=== PATIENT | male | born 1950 | race Caucasian/White ===

== ENCOUNTER 2022-01-11 09:00 | Outpatient (RCR) | payer MEDICARE, OTHER, SELFPAY | END 2022-01-17 11:19 | disposition home or self-care (01) | PROVIDERS: PCP Physician Assistant Medical; Visit Provider Physician Assistant Surgical | DX: M25.531 Pain in right wrist (principal); Z51.89 Encounter for other specified aftercare | CPT/HCPCS: 97032; 97110 ==

== ENCOUNTER 2022-03-20 14:00 | Outpatient (RCR) | payer MEDICARE, OTHER, SELFPAY ==
--- NOTE | 2022-01-25 17:15 | OT.OPOE ---
OT Outpatient Ortho Eval OT Outpatient Ortho Eval Start: 01/25/22 16:40 Freq: Status: Active Protocol: Document 01/25/22 16:40 LCN (Rec: 01/25/22 17:08 LCN Desktop) E-signed By Marcie Calvert, OTR/L, CLT OT OP Ortho Eval Details Type Type Eval Complexity Low Outpatient History/Precautions Current Condition/Medical Diagnosis Treatment Diagnosis Right wrist pain with OA. Started mid November Date of Onset 01/09/22 Medical Contraindications DM,HTN,Metal Implants, Arthritis Other Contraindications sulpha allergy Medical/Functional History Medical History Reviewed Yes Prior Level of Function/Mobility Migraines. Pernicious anemia. L RTR 6 anchor rep07/25/21. H/o B ankle fusion, cholecystectomy, knee replacement. R CTR 1908's Multple trigger finger releases ( R MF, RF and L MF). Extensor tendon repair in L MF at DIP level. 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 Fitness Limited mobility d/t high orthopedic needs/complexity Ortho Subjective Subjective Subjective Pt has diffuse pain in his R hand/wrist difficulty with dropping items, writing, managing fasteners/food packaging. Can use cane in R hand. Pain Assessment Pain Present Pain Present Pain Reported Location R hand Description Pressure,Sharp,Dull, Achy, Throbbing,With Movement Intensity Moderate Goniometric Comments Goniometric Comments Goniometric Comments Supination and pronation limited at last 25% of arc. WE 25 R (CMC /scap MOD pain) and 30 L. WF 45 R [address] 5 and 15 L. UD 25 R (CMC /scap MILD pain) and 35 L. Pt also with pn in L CMC but milder. Gripping L w CMC /scap MOD pain. Savage pinch and 3 pt pinch is MILD pain. Edema is 23.6 cm in MCP web and 21.8 cm in L side ( hypothenar loss of L observed) Hand Pinch/Wort Extractor Strength Hand Dominance Hand Dominance Right Hand Left Wort Extractor Strength Position 1 (lbs) 45 Lateral Pinch Strength (lbs) 18 Three Point Pinch (lbs) 17 Right Wort Extractor Strength Position 1 (lbs) 12 Lateral Pinch Strength (lbs) 17 Three Point Pinch (lbs) 14 OT Objective Data Sensation Sensation Assessment Summary Comments Has hypothenar mass loss moderate in R and severe in L side. No tingling in R hand. L hand RF/SF numbness intermittent Upper Extremity Special Tests Tenosynovitis Wrist Finklestein Test Positive Left,Positive Right Upper Extremity Special Tests Comments Comments Moderate sx in R Ortiz's and Mild with L. 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 He would benefit from skilled OT to address these areas. Ortho Goals Ortho Goals Goals In 10 weeks, pt will demonstrate:? 1) Decreased pn to <2/10 80% of the time with sustained gripping, carrying groceries, writing and opening food packaging. 2) I HEP for stretching, gradual strengthening and self mgmt strategies. 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 4) ??Pt to be fit with functional bracing (for CMC, wrist) and use adaptive strategies to protect joint integrity to support less pain with ADL. OT Outpatient Treatment Plan Ortho Plan Expected Frequency 1-2x Week Expected Duration 8-10 Weeks through Cert 01/25/22 - 04/26/22 Treatment Plan Evaluation,Edema Control,Joint Mobilization,Manual Therapy, Splinting,Ultrasound, Therapeutic Exercise Certification Certification I Certify That: Therapy Services Provided, Therapy Plan Established, Therapy Plan Reviewed I agree with this treatment plan as medically necessary. MD/PCP signature DATE
== END 2022-12-21 08:12 | disposition home or self-care (01) ==
PROVIDERS: PCP Physician Assistant Medical; Visit Provider Physician Assistant Medical
DX: M25.531 Pain in right wrist (principal); M19.031 Primary osteoarthritis, right wrist; Z51.89 Encounter for other specified aftercare
CPT/HCPCS: 97035; 97140; 97165; L3806

== ENCOUNTER 2022-07-10 17:14 | Outpatient (CLI) | payer MEDICARE, OTHER, SELFPAY ==
[2022-07-10 22:28] LABS: Chloride* 104 mmol/L (96-114); Potassium* 4.4 mmol/L (3.6-5.1); Sodium* 137 mmol/L (135-149)
[2022-07-10 22:31] LABS: Blood Urea Nitrogen* 13 mg/dL (7-30); Carbon Dioxide* 26 mmol/L (20-32); Creatinine* 1.3 mg/dL (0.5-1.5); Estimated Glomerular Filt Rate 59 ml/min
[2022-07-10 22:32] LABS: Calcium* 9.4 mg/dL (8.4-10.6); Glucose* 206 mg/dL (60-115)
== END 2022-07-10 17:15 | disposition home or self-care (01) ==
LOC: LKVREF 17:16
PROVIDERS: PCP Physician Assistant Medical; Visit Provider Physician Assistant Medical
DX: E11.9 Type 2 diabetes mellitus without complications (principal)
CPT/HCPCS: 80048

== ENCOUNTER 2022-08-07 12:10 | Outpatient (CLI) | payer MEDICARE, OTHER, SELFPAY ==
[2022-08-07 22:48] LABS: NT Pro B Type NatriureticPept* 78 pg/mL
[2022-08-07 23:20] LABS: Vitamin B12* 767 pg/mL (243-894)
== END 2022-08-07 12:11 | disposition home or self-care (01) ==
PROVIDERS: PCP Physician Assistant Medical; Visit Provider Physician Assistant Medical
DX: U07.1 COVID-19 (principal); R41.89 Other symptoms and signs involving cognitive functions and awareness; I10 Essential (primary) hypertension; E03.9 Hypothyroidism, unspecified; E78.1 Pure hyperglyceridemia; E53.8 Deficiency of other specified B group vitamins; E11.9 Type 2 diabetes mellitus without complications; I25.10 Atherosclerotic heart disease of native coronary artery without angina pectoris; G47.33 Obstructive sleep apnea (adult) (pediatric); Z99.89 Dependence on other enabling machines and devices
CPT/HCPCS: 82607; 83880; 84443

== ENCOUNTER 2023-01-08 15:15 | Outpatient (CLI) | payer MEDICARE, OTHER, SELFPAY ==
--- NOTE | 2023-01-16 12:02 | ONC.NURNOTE ---
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 Communications Writer willing to give direction for how to order this, once scheduled scenario writer will put patient on the schedule appropriately. Patient was notified of this. In note from PCP it mentions a history of pernicious anemia. Patient notes that he was told this once by a PCP in [place] but had no testing to prove this. He has not been seen by hematology or oncology in his past.
== END 2023-01-08 15:16 | disposition home or self-care (01) ==
PROVIDERS: PCP Physician Assistant Medical; Visit Provider Physician Assistant Medical
DX: R41.89 Other symptoms and signs involving cognitive functions and awareness (principal); R05.9 Cough, unspecified; D64.9 Anemia, unspecified; R35.0 Frequency of micturition; Z12.5 Encounter for screening for malignant neoplasm of prostate
CPT/HCPCS: 82607; 82746; 84153; 84425; 84443; 87086

== ENCOUNTER 2023-01-30 10:25 | Outpatient (CLI) | payer MEDICARE, OTHER, SELFPAY ==
[2023-01-30 12:03] VITALS: BP 130/50; PULSE 56; RESP 20; O2SAT 99; BMI 35.7
[2023-01-30 12:26] LABS: Basophils Percent Auto 9.2 % (0.0-3.0); Eosinophils Percent Auto 1.7 % (0.0-7.0); Hematocrit 41.2 % (37.0-53.0); Hemoglobin* 13.3 gm/dL (13.5-17.5); Immature Granulocytes Pct Auto 10.7 %; Immature Reticulocyte Fraction 24.9 % (2.3-13.4); Lymphocytes Percent Auto 9.8 % (20-44); Mean Corpuscular HGB Conc 32 gm/dL (32-36); Mean Corpuscular Hemoglobin 32 pg (26-34); Mean Corpuscular Volume 100 fL (80-100); Monocytes Percent Auto 4.8 % (0.0-11.0); Neutrophils Percent Auto 63.8 % (42.0-72.0); Platelet Count* 358 K/uL (140-440); RDW Coefficient of Variation % 14.3 % (11.5-15.5); Red Blood Count 4.14 m/uL (4.30-5.90); Reticulocyte Hemoglobin Equivi 33.1 pg (29.0-35.0); Reticulocyte Percent 2.2 % (0.5-2.0); Reticulocytes Absolute 0.09 # (0.03-0.08); White Blood Count* 13.31 K/uL (4.50-11.00)
[2023-01-30 12:36] LABS: Slide Review Reflex Yes
[2023-01-30 12:55] VITALS: BP 124/59; PULSE 57; RESP 16; O2SAT 97
[2023-01-30 13:00] VITALS: BP 119/76; PULSE 60; RESP 16; O2SAT 93
[2023-01-30 13:02] LABS: Slide Review Acceptable Review (Acceptable)
--- NOTE | 2023-01-30 13:06 | W.ANESCHARGE ---
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
[2023-01-30 13:10] VITALS: BP 118/68; PULSE 61; RESP 16; O2SAT 96
[2023-01-30 13:36] VITALS: BP 124/60; PULSE 59; RESP 16; O2SAT 95
== END 2023-01-30 13:38 | disposition home or self-care (01) ==
LOC: OP CLINIC 10:26
PROVIDERS: PCP Physician Assistant Medical; Visit Provider Physician Assistant Medical
DX: C92.10 Chronic myeloid leukemia, BCR/ABL-positive, not having achieved remission (principal)
CPT/HCPCS: 1112; 36415; 38222; 81450; 85025; 85045; 88184; 88185; 88237; 88264; 88305; 88311; 88313; 88342; 88360; 99100; J1644; J2001; J2704

== ENCOUNTER 2023-03-06 08:59 | Outpatient (CLI) | payer MEDICARE, OTHER, SELFPAY ==
--- NOTE | 2023-03-06 09:15 | CRLHL7_ITS ---
For Patients: As a result of the Century Cures Act, medical imaging exams and procedure reports are released immediately into your electronic medical record. You may view this report before your referring provider. If you have questions, please contact your health care provider. CLINICAL HISTORY: CHRONIC MYELOID LEUKEMIA COMPARISON: none TECHNIQUE: Real time arriola scale imaging and color Doppler analysis was performed of the abdomen. FINDINGS: The liver is mildly enlarged measuring 20.7 cm. Coarsened/increased hepatic echotexture noted without intrahepatic mass. The spleen is mildly enlarged and measures 13.8 cm. The pancreas appears normal. The proximal abdominal aorta and IVC appear normal. There is no evidence of ascites. The gallbladder is surgically absent. The common bile duct measures 4 mm in size within the naga hepatis. The kidneys appear symmetric. The right kidney measures 11.3 cm in length and the left kidney measures 12.4 cm. There is no evidence of a renal calculus or hydronephrosis. IMPRESSION: Mild hepatosplenomegaly and diffuse hepatic steatosis. No ascites. Dictated by Sam Crum MD @ 03/06/2023 10:54:25 AM (Electronically Signed)
== END 2023-03-06 09:00 | disposition home or self-care (01) ==
LOC: US 09:01
PROVIDERS: PCP Physician Assistant Medical; Visit Provider Internal Medicine Hematology & Oncology
DX: C92.10 Chronic myeloid leukemia, BCR/ABL-positive, not having achieved remission (principal); K76.0 Fatty (change of) liver, not elsewhere classified; R16.2 Hepatomegaly with splenomegaly, not elsewhere classified
CPT/HCPCS: 76700

== ENCOUNTER 2023-03-15 15:12 | Emergency (ER) | payer MEDICARE, OTHER, SELFPAY ==
[2023-03-15] VITALS (15 sets, daily range): BP systolic 145–185; BP diastolic 71–83; PULSE 74–82; RESP 22; TEMP 36.1; O2SAT 94–98; BMI 35.0
--- NOTE | 2023-03-15 15:30 | ED_ITS ---
HPI - Back Pain/Injury General Time Seen by Provider: 15:30 <Rita Calvert MD - Last Filed: 03/15/23 17:38> Date Seen: 03/15/23 <Rita Calvert MD - Last Filed: 03/15/23 17:38> Chief Complaint: Back Injury/Pain <Rita Calvert MD - Last Filed: 03/15/23 17:38> Stated Complaint: Fell on 03/13 at home-R side-urgent care sent <Rita Calvert MD - Last Filed: 03/15/23 17:38> Time Seen by Provider: 03/15/23 15:30 <Rita Calvert MD - Last Filed: 03/15/23 17:38> Source: patient, RN notes reviewed and old records reviewed <Rita Calvert MD - Last Filed: 03/15/23 17:38> Mode of arrival: ambulatory <Rita Calvert MD - Last Filed: 03/15/23 17:38> Limitations: no limitations <Rita Calvert MD - Last Filed: 03/15/23 17:38> History of Present Illness HPI Narrative: Sam is a very pleasant 72-year-old gentleman with a 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 On SundayMarch 12 patient was walking down his stairs with his cane. His cane slipped forward any ended up falling down 7 stairs and at the bottom of the stairs it turns and thus he was hanging over the railing and hit his right flank/right side on the post. His son had to come and help him up. He notes that he did have neck pain and it is still present although much improved. He does not remember hitting his head and he did not lose consciousness. 2 days ago he developed cold-like symptoms with a cough and shortness of breath. He went to urgent care today and was tested for COVID any does not know the results. Movement increases his pain. He has tried to use Tylenol for discomfort but it did not really help. He has chronic knee pain. He denies back pain in the midline. He has not noticed any fever or chills. <Rita Calvert MD - Last Filed: 03/15/23 17:38> Related Data Home Medications: Home Medications Medication Instructions Recorded Confirmed aspirin 81 mg tablet,delayed mg PO DAILY 01/09/22 03/15/23 release cholecalciferol (vitamin D3) 125 5,000 unit PO DAILY 01/09/22 03/15/23 mcg (5,000 unit) tablet ginkgo biloba 40 mg tablet 40 mg PO QDAY 01/09/22 03/15/23 metformin 500 mg tablet,extended 2,000 mg PO DAILY 01/09/22 03/15/23 release 24 hr lancets (Microlet Lancet) #100 ea 04/07/22 03/15/23 trazodone 50 mg tablet 50 mg PO QPM 03/15/23 03/15/23 Previous Rx's Medication Instructions Recorded fenofibrate 160 mg tablet 160 mg PO DAILY #90 tabs 09/21/22 alprazolam 0.5 mg tablet 0.5 mg PO QDAY PRN panic #5 tabs 10/30/22 pen needle, diabetic 32 gauge x #100 ea 10/30/22 (BD Seema 2nd Gen Pen Needle) levothyroxine 175 mcg tablet 175 mcg PO DAILY #90 tabs 11/08/22 lisinopril 5 mg tablet 5 mg PO DAILY #90 tabs 11/08/22 metoprolol succinate 50 mg 50 mg PO DAILY #90 tabs 11/08/22 tablet,extended release 24 hr omeprazole 20 mg capsule,delayed 40 mg (2 x 20 mg) PO DAILY #180 11/08/22 release caps benzonatate 200 mg capsule 200 mg PO TID PRN cough #30 caps 11/09/22 pantoprazole 40 mg tablet,delayed 40 mg PO DAILY #90 tabs 11/10/22 release blood sugar diagnostic (Contour #100 strips 12/15/22 Next Test Strips) insulin detemir U-100 100 unit/mL 55 - 60 unit (0.55 - 0.6 mL) 01/08/23 (3 mL) subcutaneous pen subcut BID #15 mL albuterol sulfate 90 mcg/actuation 2 puff inhalation Q4-6H PRN 01/11/23 aerosol inhaler shortness of breath or wheezing #8.5 grams fluticasone 500 mcg-salmeterol 50 1 inh inhalation BID #60 ea 01/11/23 mcg/dose blistr powdr for inhalation (Advair Diskus) sitagliptin phosphate 100 mg 100 mg PO DAILY #90 tabs 01/25/23 tablet (Januvia) cyanocobalamin (vitamin B-12) 1,000 mcg IM ONCE #10 mL 02/05/23 1,000 mcg/mL injection solution imatinib 400 mg tablet (Gleevec) 400 mg PO QDAY #30 tabs 03/01/23 pravastatin 20 mg tablet 20 mg PO QDAY #90 tabs 03/09/23 oxybutynin chloride 5 mg 5 mg PO DAILY #90 tabs 03/12/23 tablet,extended release 24 hr tramadol 50 mg tablet 50 mg PO Q8H PRN pain #14 tabs 03/15/23 <Rita Calvert MD - Last Filed: 03/15/23 17:38> Allergies/Adverse Reactions: Allergies Allergy/AdvReac Type Severity Reaction Status Date / Time oxycodone Allergy Severe Hallucinations Verified 03/15/23 12:03 and agitation, became violent Penicillins Allergy Severe Rash with Verified 03/15/23 12:03 blisters and welts adhesive tape Allergy Mild Rash Verified 03/15/23 12:03 Sulfa (Sulfonamide Allergy hives and Verified 03/15/23 12:03 Antibiotics) blisters <Rita Calvert MD - Last Filed: 03/15/23 17:38> Review of Systems Status of ROS: Reports: 10 or more systems reviewed and unremarkable except as noted in History and below <Rita Calvert MD - Last Filed: 03/15/23 17:38> Const: Reports: fatigue; Denies: fever or chills <Rita Calvert MD - Last Filed: 03/15/23 17:38> Eyes: Denies: change in vision <Rita Calvert MD - Last Filed: 03/15/23 17:38> ENMT: Reports: neck pain; Denies: throat pain, throat swelling, difficulty swallowing or hoarseness <Rita Calvert MD - Last Filed: 03/15/23 17:38> Cardio: Reports: lightheadedness and shortness of breath with exertion; Denies: chest pain or swelling of feet/ankles <Rita Calvert MD - Last Filed: 03/15/23 17:38> Resp: Reports: shortness of breath, cough, pain on inspiration and chest congestion; Denies: wheezing or coughing up blood <Rita Calvert MD - Last Filed: 03/15/23 17:38> GI: Reports: abdominal pain and nausea; Denies: vomiting, diarrhea or difficulty swallowing <Rita Calvert MD - Last Filed: 03/15/23 17:38> : Denies: painful urination, urinary frequency or blood in urine <Rita Calvert MD - Last Filed: 03/15/23 17:38> Musculo: Reports: back pain and neck pain; Denies: extremity pain <Rita Calvert MD - Last Filed: 03/15/23 17:38> Neuro: Denies: headache <Rita Calvert MD - Last Filed: 03/15/23 17:38> Endo: Reports: fatigue <Rita Calvert MD - Last Filed: 03/15/23 17:38> Allergy/Immuno: Denies: throat swelling or wheezing <Rita Calvert MD - Last Filed: 03/15/23 17:38> [facility] Medical History: Medical History COVID-19 ?U07.1 - COVID-19 (ICD-10) B12 deficiency ?E53.8 - Deficiency of other specified B group vitamins (ICD-10) Urge incontinence of urine ?N39.41 - Urge incontinence (ICD-10) Type 2 diabetes mellitus ?E11.9 - Type 2 diabetes mellitus without complications (ICD-10) Tubular adenoma of colon (07/2018) ?D12.6 - Benign neoplasm of colon, unspecified (ICD-10) Thyroid nodule ?E04.1 - Nontoxic single thyroid nodule (ICD-10) Seasonal allergic rhinitis ?J30.2 - Other seasonal allergic rhinitis (ICD-10) Obstructive sleep apnea treated with continuous positive airway pressure (CPAP) ?G47.33 - Obstructive sleep apnea (adult) (pediatric) (ICD-10) ?Z99.89 - Dependence on other enabling machines and devices (ICD-10) Hypothyroidism ?E03.9 - Hypothyroidism, unspecified (ICD-10) Hypertriglyceridemia ?E78.1 - Pure hyperglyceridemia (ICD-10) Hypertension ?I10 - Essential (primary) hypertension (ICD-10) History of pernicious anemia ?Z86.2 - Personal history of diseases of the blood and blood-forming organs and certain disorders involving the immune mechanism (ICD-10) History of migraine ?Z86.69 - Personal history of other diseases of the nervous system and sense organs (ICD-10) Gastroesophageal reflux disease ?K21.9 - Gastro-esophageal reflux disease without esophagitis (ICD-10) Chronic, continuous use of opioids ?F11.90 - Opioid use, unspecified, uncomplicated (ICD-10) Chronic knee pain ?M25.569 - Pain in unspecified knee (ICD-10) ?G89.29 - Other chronic pain (ICD-10) Asthma ?J45.909 - Unspecified asthma, uncomplicated (ICD-10) Anxiety ?F41.9 - Anxiety disorder, unspecified (ICD-10) Abdominal aortic aneurysm (AAA) ?I71.4 - Abdominal aortic aneurysm, without rupture (ICD-10) <Rita Calvert MD - Last Filed: 03/15/23 17:38> Surgical History: Surgical History History of excision of pilonidal cyst ?Z98.890 - Other specified postprocedural states (ICD-10) History of carpal tunnel surgery of left wrist ?Z98.890 - Other specified postprocedural states (ICD-10) S/P trigger finger release (05/10/20) ?Z98.890 - Other specified postprocedural states (ICD-10) Hx of repair of left rotator cuff (07/25/21) ?Z98.890 - Other specified postprocedural states (ICD-10) History of tonsillectomy ?Z90.89 - Acquired absence of other organs (ICD-10) History of knee surgery ?Z98.890 - Other specified postprocedural states (ICD-10) History of cholecystectomy ?Z90.49 - Acquired absence of other specified parts of digestive tract (ICD- 10) History of carpal tunnel surgery of right wrist ?Z98.890 - Other specified postprocedural states (ICD-10) History of ankle fusion ?Z98.1 - Arthrodesis status (ICD-10) <Rita Calvert MD - Last Filed: 03/15/23 17:38> Social History: Social History Narrative: Former smoker , 2 kids, retired, nonsmoker, no alcohol Resides in [place]- Multi generational home with his elderly mother, his , his daughter and family Smoking Status: Never smoker Do you use any of these nicotine containing products: None Second hand tobacco smoke exposure: No Non-prescribed substance use: denies use Little interest or pleasure in doing things: not at all Feeling down, depressed, or hopeless: several days <Rita Calvert MD - Last Filed: 03/15/23 17:38> Exam Narrative: Exam Narrative: Patient is alert and oriented. He is somewhat tachypneic and wearing a mask at this time. I do not hear any audible wheezing. His eyes are clear. His head is atraumatic normocephalic. He really has no midline cervical tenderness but he does have discomfort with rotation of the neck. Upper extremity strength is intact. GCS of 15 Heart with regular rate and rhythm and lungs are with decreased breath sounds in the lung bases right greater than left. I do not auscultate any crackles. Abdomen is noted to have right upper quadrant tenderness with palpation. He has a long strip of erythema/superficial abrasion on his right lateral torso from the bottom of the rib cage extending onto his right flank. This is measuring approximately 12 cm x 3 cm across. There is no surrounding edema or erythema or ecchymosis. Palpation down the thoracic and lumbar spine is without discomfort. Hips appear to be without discomfort. He is moving all extremities. <Rita Calvert MD - Last Filed: 03/15/23 17:38> Const: Vital Signs, click to edit/add: Vital Signs - 24 hr 03/15/23 15:17 03/15/23 16:07 03/15/23 16:15 Temperature 96.9 F L Pulse Rate 82 82 Pulse Rate [Pulse Oximeter] 79 Respiratory Rate 22 Blood Pressure Blood Pressure [Ri ght Upper Arm] 145/77 H Pulse Oximetry 98 96 94 Oxygen Delivery Me thod Room Air 03/15/23 16:54 03/15/23 16:55 Temperature Pulse Rate 79 Pulse Rate [Pulse Oximeter] Respiratory Rate Blood Pressure 158/83 H Blood Pressure [Ri ght Upper Arm] Pulse Oximetry 97 Oxygen Delivery Me thod <Rita Calvert MD - Last Filed: 03/15/23 17:38> Vital Signs, click to edit/add: Vital Signs - 24 hr 03/15/23 15:17 03/15/23 16:07 03/15/23 16:15 Temperature 96.9 F L Pulse Rate 82 82 Pulse Rate [Pulse Oximeter] 79 Respiratory Rate 22 Blood Pressure Blood Pressure [Ri ght Upper Arm] 145/77 H Pulse Oximetry 98 96 94 Oxygen Delivery Me thod Room Air 03/15/23 16:54 03/15/23 16:55 Temperature Pulse Rate 79 Pulse Rate [Pulse Oximeter] Respiratory Rate Blood Pressure 158/83 H Blood Pressure [Ri ght Upper Arm] Pulse Oximetry 97 Oxygen Delivery Me thod <Manohar Salter DO - Last Filed: 03/15/23 18:21> Documenting provider has reviewed patient's vital signs: yes <Rita Calvert MD - Last Filed: 03/15/23 17:38> Course Course ED Course: Patient presents 4 days post high mechanism of injury after fall downstairs. He is having difficulty breathing but also has symptoms of a respiratory infection. COVID was negative from the clinic but we will repeat a swab him here using the triple swab. Would also do CTs of the neck chest abdomen and pelvis as well as CBC, comprehensive, CRP. Patient has had a dysphoric reaction to oxycodone in the past. However he is in significant discomfort and I am suggesting that we do a small dose of morphine 2 mg along with Zofran 4 mg for pain control. Is he and his are in agreement with this plan. <Rita Calvert MD - Last Filed: 03/15/23 17:38> Vital Signs Vital signs: Initial Vital Signs Temperature 96.9 F L 03/15/23 15:17 Temperature Source Temporal Artery Scan 03/15/23 15:17 Pulse Rate 79 03/15/23 15:17 Pulse Rhythm Regular 03/15/23 15:17 Respiratory Rate 22 03/15/23 15:17 Blood Pressure 145/77 H 03/15/23 15:17 Blood Pressure Mean 99 03/15/23 15:17 Blood Pressure Position Sitting 03/15/23 15:17 Pulse Oximetry 98 03/15/23 15:17 Oxygen Delivery Method Room Air 03/15/23 15:17 Vital Signs Temperature 96.9 F L 03/15/23 15:17 Pulse Rate 79 03/15/23 15:17 Respiratory Rate 22 03/15/23 15:17 Blood Pressure 145/77 H 03/15/23 15:17 Pulse Oximetry 98 03/15/23 15:17 Oxygen Delivery Method Room Air 03/15/23 15:17 Temperature 96.9 F L 03/15/23 15:17 Pulse Rate 79 03/15/23 16:54 Respiratory Rate 22 03/15/23 15:17 Blood Pressure 158/83 H 03/15/23 16:55 Pulse Oximetry 97 03/15/23 16:54 Oxygen Delivery Method Room Air 03/15/23 15:17 <Rita Calvert MD - Last Filed: 03/15/23 17:38> Initial Vital Signs Temperature 96.9 F L 03/15/23 15:17 Temperature Source Temporal Artery Scan 03/15/23 15:17 Pulse Rate 79 03/15/23 15:17 Pulse Rhythm Regular 03/15/23 15:17 Respiratory Rate 03/15/23 15:17 Blood Pressure 145/77 H 03/15/23 15:17 Blood Pressure Mean 99 03/15/23 15:17 Blood Pressure Position Sitting 03/15/23 15:17 Pulse Oximetry 98 03/15/23 15:17 Oxygen Delivery Method Room Air 03/15/23 15:17 Vital Signs Temperature 96.9 F L 03/15/23 15:17 Pulse Rate 79 03/15/23 15:17 Respiratory Rate 22 03/15/23 15:17 Blood Pressure 145/77 H 03/15/23 15:17 Pulse Oximetry 98 03/15/23 15:17 Oxygen Delivery Method Room Air 03/15/23 15:17 Temperature 96.9 F L 03/15/23 15:17 Pulse Rate 79 03/15/23 16:54 Respiratory Rate 22 03/15/23 15:17 Blood Pressure 158/83 H 03/15/23 16:55 Pulse Oximetry 97 03/15/23 16:54 Oxygen Delivery Method Room Air 03/15/23 15:17 <Manohar Salter DO - Last Filed: 03/15/23 18:21> MDM - Back Pain/Injury MDM Narrative Medical decision making narrative: At this time I will sign this patient out to my partner Dr. Salter for review of CTs of the chest abdomen pelvis and cervical spine and final disposition. <Rita Calvert MD - Last Filed: 03/15/23 17:38> At this time I will sign this patient out to my partner Dr. Salter for review of CTs of the chest abdomen pelvis and cervical spine and final disposition. Patient was signed out to me pending results of the CT of the chest abdomen and pelvis. Cervical spine CT is done and shows no concerning abnormalities. CT of the chest abdomen pelvis also shows no acute abnormalities. Patient is doing well and pain has improved with the morphine given. He is asking for pain medicine to go home with his Tylenol ibuprofen not been helping. He cannot take oxycodone as it causes hallucinations with morphine was not causing issues will try tramadol. Patient is otherwise doing well and can be safely discharged home. Patient and his agree with this plan. <Manohar Salter DO - Last Filed: 03/15/23 18:21> Medical Records Attestation: I reviewed the patient's medical records. <Rita Calvert MD - Last Filed: 03/15/23 17:38> Lab Data Attestation: I reviewed the patient's lab results. <Rita Calvert MD - Last Filed: 03/15/23 17:38> Labs: Lab Results 03/15/23 Range/Units 15:55 WBC 15.40 H (4.50-11.00) K/uL RBC 4.15 L (4.30-5.90) m/uL Hgb 13.4 L (13.5-17.5) gm/dL Hct 41.4 (37.0-53.0) % MCV 100 (80-100) fL MCH 32 (26-34) pg MCHC 32 (32-36) gm/dL RDW Coeff of Mirella 13.5 (11.5-15.5) % Plt Count 427 (140-440) K/uL Neut % (Auto) 75.5 H (42.0-72.0) % Lymph % (Auto) 6.2 L (20-44) % [place] % (Auto) 4.2 (0.0-11.0) % Eos % (Auto) 1.2 (0.0-7.0) % Baso % (Auto) 6.8 H (0.0-3.0) % Neut # (Auto) 11.60 H (1.7-7.0) K/uL Lymph # (Auto) 1.00 (0.90-2.90) K/uL [place] # (Auto) 0.60 (0.00-0.90) K/UL Eos # (Auto) 0.20 (0.00-0.50) K/uL Baso # (Auto) 1.00 H (0.00-0.30) K/uL Abs Immat Gran (auto) 0.90 H (0.00-0.30) K/uL Imm/Tot Granulo (auto) 6.1 % Diff Slide Review Acceptable Review (Acceptable) Sodium 138 (135-149) mmol/L Potassium 3.6 (3.6-5.1) mmol/L Chloride 99 (96-114) mmol/L Carbon Dioxide 25 (20-32) mmol/L Anion Gap 14 (7-15) mEq/L BUN 20 (7-30) mg/dL Creatinine 1.7 H (0.5-1.5) mg/dL Estimated Creat Clear 41.75 Estimated GFR 43 ml/min Glucose 141 H (60-115) mg/dL Lactate 1.9 (0.5-1.9) mmol/L Calcium 10.1 (8.4-10.6) mg/dL Total Bilirubin 0.7 (0.1-1.5) mg/dL AST 36 H (12-35) U/L ALT 29 (4-50) U/L Alkaline Phosphatase 58 (40-150) U/L C-Reactive Protein 4.2 H (0.5-1.0) mg/dL Total Protein 8.7 H (6.0-8.3) g/dL Albumin 4.6 (3.3-5.0) g/dL <Rita Calvert MD - Last Filed: 03/15/23 17:38> Lab Results 03/15/23 Range/Units 15:55 WBC 15.40 H (4.50-11.00) K/uL RBC 4.15 L (4.30-5.90) m/uL Hgb 13.4 L (13.5-17.5) gm/dL Hct 41.4 (37.0-53.0) % MCV 100 (80-100) fL MCH 32 (26-34) pg MCHC 32 (32-36) gm/dL RDW Coeff of Mirella 13.5 (11.5-15.5) % Plt Count 427 (140-440) K/uL Neut % (Auto) 75.5 H (42.0-72.0) % Lymph % (Auto) 6.2 L (20-44) % [place] % (Auto) 4.2 (0.0-11.0) % Eos % (Auto) 1.2 (0.0-7.0) % Baso % (Auto) 6.8 H (0.0-3.0) % Neut # (Auto) 11.60 H (1.7-7.0) K/uL Lymph # (Auto) 1.00 (0.90-2.90) K/uL [place] # (Auto) 0.60 (0.00-0.90) K/UL Eos # (Auto) 0.20 (0.00-0.50) K/uL Baso # (Auto) 1.00 H (0.00-0.30) K/uL Abs Immat Gran (auto) 0.90 H (0.00-0.30) K/uL Imm/Tot Granulo (auto) 6.1 % Diff Slide Review Acceptable Review (Acceptable) Sodium 138 (135-149) mmol/L Potassium 3.6 (3.6-5.1) mmol/L Chloride 99 (96-114) mmol/L Carbon Dioxide 25 (20-32) mmol/L Anion Gap 14 (7-15) mEq/L BUN 20 (7-30) mg/dL Creatinine 1.7 H (0.5-1.5) mg/dL Estimated Creat Clear 41.75 Estimated GFR 43 ml/min Glucose 141 H (60-115) mg/dL Lactate 1.9 (0.5-1.9) mmol/L Calcium 10.1 (8.4-10.6) mg/dL Total Bilirubin 0.7 (0.1-1.5) mg/dL AST 36 H (12-35) U/L ALT 29 (4-50) U/L Alkaline Phosphatase 58 (40-150) U/L C-Reactive Protein 4.2 H (0.5-1.0) mg/dL Total Protein 8.7 H (6.0-8.3) g/dL Albumin 4.6 (3.3-5.0) g/dL <Manohar Salter DO - Last Filed: 03/15/23 18:21> Imaging Data CT Chest/Ab/Pelvis: Attestation: I have reviewed the pertinent imaging results. <Rita Calvert MD - Last Filed: 03/15/23 17:38> Radiologist's impression: INDICATION: FALL, NECK PAIN, TRAUMA TO RIGHT RIB CAGE, RIGHT FLANK PAIN TECHNIQUE: CT chest, abdomen and pelvis acquired 120 milliliters of Isovue 370 IV contrast. COMPARISON: None. FINDINGS: CHEST: Cardiovascular structures: Heart size is normal. Thoracic aorta and main pulmonary artery are normal in caliber. Calcific atherosclerosis of the coronary arteries. Mediastinum and selwyn: No mass or adenopathy. Lungs and pleura: Mild bibasilar atelectasis. No pleural effusions or pneumothorax identified. Chest wall and axilla: No mass or adenopathy. Bones: No suspicious bone lesions. Unremarkable for age. ABDOMEN AND PELVIS: Liver: Unremarkable. Gallbladder and bile ducts: The gallbladder is absent. No intra or extrahepatic biliary ductal dilatation. Pancreas: Unremarkable. Spleen: Unremarkable. Adrenal glands: Unremarkable. Kidneys: Unremarkable. GI tract: Unremarkable. Vascular structures: Unremarkable. Lymph nodes: Unremarkable. Miscellaneous: Left fat containing inguinal hernia. No free air or significant free fluid. Subcutaneous stranding of the right lateral abdominal wall (). Pelvic Organs: Unremarkable. Bones: No suspicious bone lesions. Unremarkable for age. IMPRESSION: No intrathoracic or intra-abdominal traumatic injury identified. Please note that all CT scans at this facility use dose modulation, iterative reconstruction, and/or weight-based dosing when appropriate to reduce radiation dose to as low as reasonably achievable. Dictated by Cesario Car MD @ 03/15/2023 5:58:44 PM <Manohar Salter DO - Last Filed: 03/15/23 18:21> Cervical spine CT: Attestation: I have reviewed the pertinent imaging results. <Rita Calvert MD - Last Filed: 03/15/23 17:38> Radiologist's impression: Indication: Fall, neck pain Technique: Noncontrast axial CT of the cervical spine with coronal and sagittal reformats. Comparison: Same day CT head Findings: Straightening of the cervical lordosis. No significant spondylolisthesis. Craniocervical articulation appears within normal limits. Vertebral body heights are grossly maintained. No evidence of acute fracture. No suspicious high density material within the central spinal canal. Scattered spondylosis, with degenerative disc-osteophyte complexes, uncovertebral and facet arthropathy. Suspect mild spinal canal narrowing at C6-7, with multilevel neural foraminal stenosis. No suspicious findings identified in the paraspinal soft tissues. Hypodense right thyroid nodule measuring approximately 2.5 cm. Included lung apices are clear. Impression: 1. No CT evidence of acute fracture or traumatic malalignment in the cervical spine. 2. Cervical spondylosis, with mild spinal canal narrowing and multilevel neural foraminal stenosis. 3. Incidental hypodense 2.5 cm right thyroid nodule. Please note that all CT scans at this facility use dose modulation, iterative reconstruction, and/or weight-based dosing when appropriate to reduce radiation dose to as low as reasonably achievable. Dictated by Ksenia Chong MD @ 03/15/2023 5:31:33 PM <Manohar Salter DO - Last Filed: 03/15/23 18:21> CT scan - head: Attestation: I have reviewed the pertinent imaging results. <Rita Calvert MD - Last Filed: 03/15/23 17:38> Radiologist's impression: Bony calvarium appears grossly intact. No acute intracranial hemorrhage or abnormal extra-axial fluid collection. No midline shift, hydrocephalus, or herniation. Preserved arriola-white matter differentiation. Scattered supratentorial white matter hypoattenuation. Midline structures are unremarkable. Scattered intracranial atherosclerotic plaquing. Diffuse paranasal sinus mucosal thickening with bilateral maxillary sinus air-fluid levels. Presumed cerumen bilateral external auditory canals. Unremarkable orbits. IMPRESSION: 1. No evidence of skull fracture or acute intracranial hemorrhage. 2. Pansinus mucosal thickening with bilateral maxillary sinus air-fluid levels. Advise clinical correlation for acute sinusitis. <Rita Calvert MD - Last Filed: 03/15/23 17:38> Discharge Plan Discharge Clinical Impression: Contusion Qualifiers: Encounter type: initial encounter Contusion area: abdominal wall Qualified Code(s): S30.1XXA - Contusion of abdominal wall, initial encounter <Rita Calvert MD - Last Filed: 03/15/23 17:38> Patient Disposition: Home, Self-Care <Rita Calvert MD - Last Filed: 03/15/23 17:38> Condition: Stable <Rita Calvert MD - Last Filed: 03/15/23 17:38> Instructions: Contusion in Adults (ED) <Rita Calvert MD - Last Filed: 03/15/23 17:38> Additional Instructions: He can take Tylenol and ibuprofen for pain. If that is not helping use tramadol. Return for new or worsening symptoms. Follow-up with primary care provider if pain is not under control <Rita Calvert MD - Last Filed: 03/15/23 17:38> Prescriptions: New tramadol 50 mg tablet 50 mg PO Q8H PRN (Reason: pain) Qty: 14 0RF No Action (DME) lancets [Microlet Lancet] Misc See Rx Instructions .ROUTE .MEDSUPPLY Qty: 100 Patient Comments: USE UP TO 4X DAILY FOR BLOOD SUGAR CHECKS Rx Instructions: As directed fenofibrate 160 mg tablet 160 mg PO DAILY Qty: 90 2RF Rx Instructions: for triglycerides alprazolam 0.5 mg tablet 0.5 mg PO QDAY PRN (Reason: panic ) Qty: 5 0RF Rx Instructions: once daily for severe anxiety/panic (DME) pen needle, diabetic [BD Seema 2nd Gen Pen Needle] 32 gauge x 5/32 needle See Rx Instructions .Route Qty: 100 3RF Rx Instructions: twice daily for in[place], diabetes benzonatate 200 mg capsule 200 mg PO TID PRN (Reason: cough) Qty: 30 1RF imatinib [Gleevec] 400 mg tablet 400 mg PO QDAY Qty: 30 1RF cholecalciferol (vitamin D3) 125 mcg (5,000 unit) tablet 5,000 unit PO DAILY aspirin 81 mg tablet,delayed release (DR/EC) PO DAILY ginkgo biloba 40 mg tablet 40 mg PO QDAY Rx Instructions: give with meal/snack metformin 500 mg tablet extended release 24 hr 2,000 mg PO DAILY Rx Instructions: for diabetes insulin detemir U-100 100 unit/mL (3 mL) insulin pen 55 - 60 unit subcut BID Qty: 15 3RF Rx Instructions: 60 units in the AM, 55 units in the evening trazodone 50 mg tablet 50 mg PO QPM lisinopril 5 mg tablet 5 mg PO DAILY Qty: 90 2RF Rx Instructions: for blood pressure levothyroxine 175 mcg tablet 175 mcg PO DAILY Qty: 90 2RF Rx Instructions: for thyroid metoprolol succinate 50 mg tablet extended release 24 hr 50 mg PO DAILY Qty: 90 3RF Rx Instructions: for blood pressure omeprazole 20 mg capsule,delayed release(DR/EC) 40 mg PO DAILY Qty: 180 3RF Rx Instructions: for gerd pantoprazole 40 mg tablet,delayed release (DR/EC) 40 mg PO DAILY Qty: 90 3RF Rx Instructions: for gerd (DME) Contour Next Test Strips Strip See Rx Instructions .ROUTE .COMPLEX Qty: 100 3RF Dose Instruction: USE TO TEST BLOOD SUGAR TWICE DAILY DUE FOR APPT Rx Instructions: USE TO TEST BLOOD SUGAR TWICE DAILY DUE FOR APPT albuterol sulfate 90 mcg/actuation HFA aerosol inhaler 2 puff inhalation Q4-6H PRN (Reason: shortness of breath or wheezing) Qty: 8. 5 3RF fluticasone propion-salmeterol [Advair Diskus] 500-50 mcg/dose blister with device 1 inh inhalation BID Qty: 60 3RF Januvia 100 mg tablet 100 mg PO DAILY Qty: 90 1RF Rx Instructions: once daily for diabetes cyanocobalamin (vitamin B-12) 1,000 mcg/mL solution 1,000 mcg IM ONCE Qty: 10 3RF Rx Instructions: 1,000mcg once monthly pravastatin 20 mg tablet 20 mg PO QDAY Qty: 90 0RF Rx Instructions: stop atorvastatin Start once daily for cholesterol oxybutynin chloride 5 mg tablet extended release 24hr 5 mg PO DAILY Qty: 90 0RF Rx Instructions: Take 1 tablet daily <Rita Calvert MD - Last Filed: 03/15/23 17:38> Follow Up/Referrals: Jessie England PA-C [Primary Care Provider] - <Rita Calvert MD - Last Filed: 03/15/23 17:38> Stand Alone Forms: MyHealth Info Instructions <Rita Calvert MD - Last Filed: 03/15/23 17:38>
--- NOTE | 2023-03-15 15:41 | CRLHL7_ITS ---
For Patients: As a result of the Century Cures Act, medical imaging exams and procedure reports are released immediately into your electronic medical record. You may view this report before your referring provider. If you have questions, please contact your health care provider. INDICATION: Fall, neck pain TECHNIQUE: Noncontrast axial CT of the head. Coronal and sagittal reformats. Bone and soft tissue algorithms. COMPARISON: No relevant comparison studies available at this institution. FINDINGS: Bony calvarium appears grossly intact. No acute intracranial hemorrhage or abnormal extra-axial fluid collection. No midline shift, hydrocephalus, or herniation. Preserved arriola-white matter differentiation. Scattered supratentorial white matter hypoattenuation. Midline structures are unremarkable. Scattered intracranial atherosclerotic plaquing. Diffuse paranasal sinus mucosal thickening with bilateral maxillary sinus air-fluid levels. Presumed cerumen bilateral external auditory canals. Unremarkable orbits. IMPRESSION: 1. No evidence of skull fracture or acute intracranial hemorrhage. 2. Pansinus mucosal thickening with bilateral maxillary sinus air-fluid levels. Advise clinical correlation for acute sinusitis. Please note that all CT scans at this facility use dose modulation, iterative reconstruction, and/or weight-based dosing when appropriate to reduce radiation dose to as low as reasonably achievable. Dictated by Ksenia Chong MD @ 03/15/2023 5:26:43 PM (Electronically Signed)
--- NOTE | 2023-03-15 15:41 | CRLHL7_ITS ---
For Patients: As a result of the Century Cures Act, medical imaging exams and procedure reports are released immediately into your electronic medical record. You may view this report before your referring provider. If you have questions, please contact your health care provider. Indication: Fall, neck pain Technique: Noncontrast axial CT of the cervical spine with coronal and sagittal reformats. Comparison: Same day CT head Findings: Straightening of the cervical lordosis. No significant spondylolisthesis. Craniocervical articulation appears within normal limits. Vertebral body heights are grossly maintained. No evidence of acute fracture. No suspicious high density material within the central spinal canal. Scattered spondylosis, with degenerative disc-osteophyte complexes, uncovertebral and facet arthropathy. Suspect mild spinal canal narrowing at C6-7, with multilevel neural foraminal stenosis. No suspicious findings identified in the paraspinal soft tissues. Hypodense right thyroid nodule measuring approximately 2.5 cm. Included lung apices are clear. Impression: 1. No CT evidence of acute fracture or traumatic malalignment in the cervical spine. 2. Cervical spondylosis, with mild spinal canal narrowing and multilevel neural foraminal stenosis. 3. Incidental hypodense 2.5 cm right thyroid nodule. Please note that all CT scans at this facility use dose modulation, iterative reconstruction, and/or weight-based dosing when appropriate to reduce radiation dose to as low as reasonably achievable. Dictated by Ksenia Chong MD @ 03/15/2023 5:31:33 PM (Electronically Signed)
--- NOTE | 2023-03-15 15:43 | CRLHL7_ITS ---
For Patients: As a result of the Century Cures Act, medical imaging exams and procedure reports are released immediately into your electronic medical record. You may view this report before your referring provider. If you have questions, please contact your health care provider. INDICATION: FALL, NECK PAIN, TRAUMA TO RIGHT RIB CAGE, RIGHT FLANK PAIN TECHNIQUE: CT chest, abdomen and pelvis acquired 120 milliliters of Isovue 370 IV contrast. COMPARISON: None. FINDINGS: CHEST: Cardiovascular structures: Heart size is normal. Thoracic aorta and main pulmonary artery are normal in caliber. Calcific atherosclerosis of the coronary arteries. Mediastinum and selwyn: No mass or adenopathy. Lungs and pleura: Mild bibasilar atelectasis. No pleural effusions or pneumothorax identified. Chest wall and axilla: No mass or adenopathy. Bones: No suspicious bone lesions. Unremarkable for age. ABDOMEN AND PELVIS: Liver: Unremarkable. Gallbladder and bile ducts: The gallbladder is absent. No intra or extrahepatic biliary ductal dilatation. Pancreas: Unremarkable. Spleen: Unremarkable. Adrenal glands: Unremarkable. Kidneys: Unremarkable. GI tract: Unremarkable. Vascular structures: Unremarkable. Lymph nodes: Unremarkable. Miscellaneous: Left fat containing inguinal hernia. No free air or significant free fluid. Subcutaneous stranding of the right lateral abdominal wall (). Pelvic Organs: Unremarkable. Bones: No suspicious bone lesions. Unremarkable for age. IMPRESSION: No intrathoracic or intra-abdominal traumatic injury identified. Please note that all CT scans at this facility use dose modulation, iterative reconstruction, and/or weight-based dosing when appropriate to reduce radiation dose to as low as reasonably achievable. Dictated by Cesario Car MD @ 03/15/2023 5:58:44 PM (Electronically Signed)
[2023-03-15 16:04] LABS: Lactate* 1.9 mmol/L (0.5-1.9)
[2023-03-15] MEDS: MORPHINE 2 MG/ML inj IVP (16:04)
[2023-03-15 16:06] LABS: Basophils Percent Auto 6.8 % (0.0-3.0); Eosinophils Percent Auto 1.2 % (0.0-7.0); Hematocrit 41.4 % (37.0-53.0); Hemoglobin* 13.4 gm/dL (13.5-17.5); Immature Granulocytes Pct Auto 6.1 %; Lymphocytes Percent Auto 6.2 % (20-44); Mean Corpuscular HGB Conc 32 gm/dL (32-36); Mean Corpuscular Hemoglobin 32 pg (26-34); Mean Corpuscular Volume 100 fL (80-100); Monocytes Percent Auto 4.2 % (0.0-11.0); Neutrophils Percent Auto 75.5 % (42.0-72.0); Platelet Count* 427 K/uL (140-440); RDW Coefficient of Variation % 13.5 % (11.5-15.5); Red Blood Count 4.15 m/uL (4.30-5.90)
[2023-03-15 16:12] LABS: Slide Review Reflex Yes
[2023-03-15 16:19] LABS: Albumin* 4.6 g/dL (3.3-5.0); Chloride* 99 mmol/L (96-114); Potassium* 3.6 mmol/L (3.6-5.1); Sodium* 138 mmol/L (135-149)
[2023-03-15 16:21] LABS: Bilirubin Total* 0.7 mg/dL (0.1-1.5); Creatinine* 1.7 mg/dL (0.5-1.5); Est. Creatinine Clearance* 41.75; Estimated Glomerular Filt Rate 43 ml/min
[2023-03-15 16:22] LABS: Alanine Aminotransferase* 29 U/L (4-50); Alkaline Phosphatase* 58 U/L (40-150); Anion Gap 14 mEq/L (7-15); Aspartate Amino Transferase* 36 U/L (12-35); Blood Urea Nitrogen* 20 mg/dL (7-30); Carbon Dioxide* 25 mmol/L (20-32); Total Protein* 8.7 g/dL (6.0-8.3)
[2023-03-15 16:23] LABS: Calcium* 10.1 mg/dL (8.4-10.6); Glucose* 141 mg/dL (60-115)
[2023-03-15 16:25] LABS: C Reactive Protein* 4.2 mg/dL (0.5-1.0)
[2023-03-15 16:43] LABS: Slide Review Acceptable Review (Acceptable)
[2023-03-15] MEDS: 0.9 % SODIUM CHLORIDE 500 ML 500 ML IV ×2 (16:57→17:58)
== END 2023-03-15 18:55 | disposition home or self-care (01) ==
PROVIDERS: Family Medicine; Emergency Provider Student in an Organized Health Care Education/Training Program; PCP Physician Assistant Medical
DX: S30.1XXA Contusion of abdominal wall, initial encounter (principal); W10.9XXA Fall (on) (from) unspecified stairs and steps, initial encounter
CPT/HCPCS: 36415; 70450; 71260; 72125; 74177; 80053; 83605; 85025; 86140; 87086; 99284; 99285; J2270; J7120; Q9967

== ENCOUNTER 2023-05-15 06:48 | Outpatient (CLI) | payer MEDICARE, OTHER, SELFPAY ==
[2023-05-15] MEDS: SODIUM CHLORIDE 0.9 % (FLUSH) 10 ML SYRINGE IVF (09:10)
[2023-05-15] MEDS: REGADENOSON 0.4 MG/5 ML SYRINGE IVP (09:10)
[2023-05-15 09:25] VITALS: BP 116/68; PULSE 79; RESP 16
--- NOTE | 2023-05-15 10:07 | W.PM.STED ---
Stress Test Note Date Date of test: 05/15/23 Providers Primary care provider: Jessie England Stress test physician: Tanmay Sanchez Stress Test Note Stress test ordered: Lexiscan Indication for test: Chest pain Stress test medicine: Lexiscan Results discussion: 9-year-old gentleman presents for the above test after discussion the risks benefits and side effects he would like to proceed. Cardiac stress test medical history form is reviewed entirely, pretest EKG shows normal sinus rhythm, with a ventricular rate of 68, blood pressure 125/77. Occasional PVCs are noted. No acute ST wave changes suggestive of ischemia. Standard infusion of Lexiscan is done over protocol length of 5 minutes. Maximum heart rate was 153, which is 119% of the target. Patient had no chest pain was asymptomatic during this test. Objectively no ST wave changes suggestive of ischemia are noted, rhythm remains sinus, there is no dysrhythmias. Impression: Negative electrographic portion of Lexiscan Follow up suggested: Await nuclear images which will be jointly read by Cardiology and nuclear Medicine. Clinical correlation with his results will be needed. Patient left this testing facility in good condition, at baseline
== END 2023-05-15 09:56 | disposition home or self-care (01) ==
LOC: STRESS 06:51
PROVIDERS: PCP Physician Assistant Medical; Visit Provider Family Medicine
DX: R07.9 Chest pain, unspecified (principal)
CPT/HCPCS: 78452; 93016; 93017; A9500; J2785

== ENCOUNTER 2023-06-20 08:02 | Outpatient (CLI) | payer MEDICARE, OTHER, SELFPAY | END 2023-06-20 08:03 | disposition home or self-care (01) | PROVIDERS: PCP Physician Assistant Medical; Visit Provider Physician Assistant Medical | DX: D64.9 Anemia, unspecified (principal); I10 Essential (primary) hypertension; E11.9 Type 2 diabetes mellitus without complications; E53.8 Deficiency of other specified B group vitamins; Z13.6 Encounter for screening for cardiovascular disorders | CPT/HCPCS: 80061; 82043; 82570; 82607 ==

== ENCOUNTER 2023-07-24 12:30 | Outpatient (RCR) | payer MEDICARE, OTHER, SELFPAY ==
--- NOTE | 2023-03-02 11:38 | ONC.NURNOTE ---
Yesterday education started for imatinib new medication start and patient present reviewed: after hours management of concerns, calling [facility] with concerns or changes, dose, administration, safe handling and disposal information provided, durg information handouts reviewed cost and pharmacy discussed- [facility] to [facility] questions addressed, ANDREA forms reviewed and signed still needed; every 2 week lab after start follow up in 4 weeks Abd US to evaluate spleen size planned for 03/07 needs appt for COVID and Flu vaccine before starting- awaiting new COVID vaccine release
[2023-03-06 10:10] LABS: Basophils Percent Auto 11.7 % (0.0-3.0); Eosinophils Percent Auto 1.8 % (0.0-7.0); Hematocrit 40.5 % (37.0-53.0); Hemoglobin* 13.1 gm/dL (13.5-17.5); Lymphocytes Percent Auto 7.5 % (20-44); Mean Corpuscular HGB Conc 32 gm/dL (32-36); Mean Corpuscular Hemoglobin 33 pg (26-34); Mean Corpuscular Volume 101 fL (80-100); Monocytes Percent Auto 4.2 % (0.0-11.0); Neutrophils Percent Auto 64.8 % (42.0-72.0); Platelet Count* 354 K/uL (140-440); RDW Coefficient of Variation % 13.4 % (11.5-15.5); Red Blood Count 4.01 m/uL (4.30-5.90); White Blood Count* 15.96 K/uL (4.50-11.00)
--- NOTE | 2023-03-06 10:12 | ONC.NURNOTE ---
patient stopped by as planned after US today appts made for Q 2 week lab here and 4 week follow up appt with Dr Terry Imatinib is going to be delivered this week from [facility] Plan to start on Sunday03/12/23 calendar given with appts Additional information provided on Fatigue and Eating Well and Self Care at Home Sam reports no further questions
[2023-03-06 10:22] LABS: Slide Review Reflex Yes
[2023-03-06 10:23] LABS: Albumin* 4.3 g/dL (3.3-5.0)
[2023-03-06 10:24] LABS: Chloride* 106 mmol/L (96-114); Potassium* 4.2 mmol/L (3.6-5.1); Sodium* 138 mmol/L (135-149)
[2023-03-06 10:26] LABS: Anion Gap 9 mEq/L (7-15); Aspartate Amino Transferase* 23 U/L (12-35); Bilirubin Total* 0.6 mg/dL (0.1-1.5); Carbon Dioxide* 23 mmol/L (20-32); Creatinine* 1.2 mg/dL (0.5-1.5); Est. Creatinine Clearance* 59.14; Estimated Glomerular Filt Rate 65 ml/min; Total Protein* 7.8 g/dL (6.0-8.3)
[2023-03-06 10:27] LABS: Alanine Aminotransferase* 20 U/L (4-50); Alkaline Phosphatase* 62 U/L (40-150); Blood Urea Nitrogen* 13 mg/dL (7-30); Calcium* 9.6 mg/dL (8.4-10.6); Glucose* 204 mg/dL (60-115); Lactate Dehydrogenase* 142 U/L (120-246)
[2023-03-06 10:32] LABS: Slide Review Acceptable Review (Acceptable)
--- NOTE | 2023-03-07 15:04 | ONC.NURNOTE ---
Possible imitinib drug interactions with patients current prescriptions discussed with Dr Terry and called to Jessie England's nurse -attention needed to atorvastatin, aprazolam moderate interaction noted with oxybutynin and metoprolol patient notified of drug interactions
--- NOTE | 2023-03-09 15:33 | ONC.NURNOTE ---
Received instructions from Jessie England with the following due to medication interactions: -Stop Atorvastatin, and start Pravastatin. -Cut Metoprolol 50mg in half, take 20mg daily. -Avoid use of Xanax while on chemo. -Hold oxybutynin (pt states he doesn't have this). Information Systems Consultant called pt with update and also mailed written info to pt. Pt verbalized understanding of instructions. Jessie England's recommendations are in pt chart.
--- NOTE | 2023-03-14 14:53 | ONC.NURNOTE ---
new start imatinib reported upset stomach first day day 2 better day 3 continues to improve fell down 6-8 steps last night Sam is not sure why he fell and hit his side on the bottom of railing patient asked if ok to take tylenol- video games storywriter recommended that he see his PCP denies bumping head
--- NOTE | 2023-03-21 13:48 | ONC.NURNOTE ---
patient called with follow up; mild nausea continues he will try his omeprazole- he has not been taking and there is not noted interaction with imatinib still sore from his fall he is drinking fluids, but does not have a great appetite he is drinking more water and less coke sees PCP next month 2 week lab due on Sunday
[2023-03-26 10:13] LABS: Basophils Percent Auto 14.5 % (0.0-3.0); Eosinophils Absolute Auto 0.17 K/uL (0.00-0.50); Eosinophils Percent Auto 2.6 % (0.0-7.0); Hemoglobin* 12.4 gm/dL (13.5-17.5); Immature Granulocytes Abs Auto 0.04 K/uL (0.00-0.30); Immature Granulocytes Pct Auto 0.6 %; Mean Corpuscular HGB Conc 33 gm/dL (32-36); Mean Corpuscular Hemoglobin 33 pg (26-34); Mean Corpuscular Volume 100 fL (80-100); Monocytes Percent Auto 3.3 % (0.0-11.0); Neutrophils Absolute Auto 4.51 K/uL (1.7-7.0); Platelet Count* 374 K/uL (140-440); RDW Coefficient of Variation % 12.9 % (11.5-15.5); White Blood Count* 6.63 K/uL (4.50-11.00)
[2023-03-26 10:26] LABS: Albumin* 4.3 g/dL (3.3-5.0); Chloride* 104 mmol/L (96-114); Potassium* 3.9 mmol/L (3.6-5.1); Sodium* 140 mmol/L (135-149)
[2023-03-26 10:28] LABS: Alanine Aminotransferase* 19 U/L (4-50); Alkaline Phosphatase* 85 U/L (40-150); Anion Gap 10 mEq/L (7-15); Aspartate Amino Transferase* 24 U/L (12-35); Bilirubin Total* 0.5 mg/dL (0.1-1.5); Blood Urea Nitrogen* 12 mg/dL (7-30); Carbon Dioxide* 26 mmol/L (20-32); Creatinine* 1.1 mg/dL (0.5-1.5); Est. Creatinine Clearance* 64.52; Estimated Glomerular Filt Rate 72 ml/min; Glucose* 95 mg/dL (60-115); Total Protein* 7.7 g/dL (6.0-8.3)
[2023-03-26 10:29] LABS: Calcium* 9.8 mg/dL (8.4-10.6)
[2023-03-26 11:08] LABS: Slide Review Reflex Yes
[2023-03-26 11:09] LABS: Slide Review Acceptable Review (Acceptable)
--- NOTE | 2023-03-26 12:08 | ONC.NURNOTE ---
Addendum entered by Jesika Schmitz RN 03/26/23 13:09: lab results called to Sam Vargas forgot to mention that he has had diarrhea for the pst 3 days one day he had numerous epidsodes of watery stool Sam has not taken any imodium at this time He has had no loose stools today and ate breakfast and lunch Sam was advised to take 2 imodium if he has another loose stool and call play writer if he has another day of frequent watery stools advised on hydration which Sam states he is drinking plenty of water also discussed pediatlye weight is down 10 # per patients account Original Note: Sam here for 1st lab follow up after starting imatinib He is recovering from a fall down the stairs 2 weeks ago- and still has pain in the right rib cage which he states is a little better continues on minor nausea with imatinib- states taking mid day with meal has helped offered option of antiemetic- which he denied a RX Sam states that overall he feels not so great- non specific concerns that may have also been his baseline prior to starting his imatinib- play writer asked patient this question and he was unable to discern if his health feels worse since starting imatinib Sam has follow up with oncology in 2 weeks with lab and with his PCP in about a month
[2023-04-10 08:29] LABS: Basophils Percent Auto 5.8 % (0.0-3.0); Eosinophils Absolute Auto 0.11 K/uL (0.00-0.50); Eosinophils Percent Auto 2.1 % (0.0-7.0); Hemoglobin* 11.9 gm/dL (13.5-17.5); Immature Granulocytes Abs Auto 0.03 K/uL (0.00-0.30); Immature Granulocytes Pct Auto 0.6 %; Lymphocytes Percent Auto 12.4 % (20-44); Mean Corpuscular HGB Conc 32 gm/dL (32-36); Mean Corpuscular Hemoglobin 33 pg (26-34); Mean Corpuscular Volume 103 fL (80-100); Monocytes Percent Auto 6.2 % (0.0-11.0); Neutrophils Percent Auto 72.9 % (42.0-72.0); Platelet Count* 248 K/uL (140-440); RDW Coefficient of Variation % 13.6 % (11.5-15.5); White Blood Count* 5.33 K/uL (4.50-11.00)
[2023-04-10 08:33] LABS: Slide Review Reflex Yes
[2023-04-10 08:43] LABS: Albumin* 4.2 g/dL (3.3-5.0); Chloride* 105 mmol/L (96-114); Potassium* 4.3 mmol/L (3.6-5.1); Sodium* 139 mmol/L (135-149)
[2023-04-10 08:45] LABS: Creatinine* 1.2 mg/dL (0.5-1.5); Est. Creatinine Clearance* 59.14; Estimated Glomerular Filt Rate 65 ml/min
[2023-04-10 08:46] LABS: Alanine Aminotransferase* 15 U/L (4-50); Alkaline Phosphatase* 83 U/L (40-150); Anion Gap 8 mEq/L (7-15); Aspartate Amino Transferase* 35 U/L (12-35); Bilirubin Total* 0.7 mg/dL (0.1-1.5); Blood Urea Nitrogen* 12 mg/dL (7-30); Calcium* 9.2 mg/dL (8.4-10.6); Carbon Dioxide* 26 mmol/L (20-32); Glucose* 70 mg/dL (60-115); Total Protein* 7.5 g/dL (6.0-8.3)
[2023-04-10 08:48] LABS: Slide Review Acceptable Review (Acceptable)
--- NOTE | 2023-04-13 14:50 | ONC.NURNOTE ---
patient called stating his blood sugars are running lower than usual-40-50's. Thought maybe it was due to his new pill-Gleevac but let patient not directly noted as a side effect but if he is eating differently-nausea, vomiting or diarrhea patient could be taking in less calories and would need to have his insulin readjusted. He did say he tried an experiment with his doctor and that was to decrease insulin and his blood sugar was better this am at 107. Instructed patient to work closely with MD and let [facility] know if any N-V-or diarrhea. At this time he has diarrhea which is 1-2 soft/liquid stools a day. Instructed to call and let us know if any further issues
--- NOTE | 2023-04-26 12:42 | ONC.NURNOTE ---
Sam phoned in today with the following information: he is taking 1 compazine daily and is feeling better this week, last week he did not feel well- fatigued-nausea reports a quarter sized sore, with redness and drainage on the back of his leg that his has been treating with daily neosporin- the sore is now dime sized, with no drainage or redness encouraged to report this to his PCP- and to come in sooner if status worsens Sam is also scheduled to get his COVID vaccine today Sam has been managing his insulin dose with PCP due to running hypoglycemic
[2023-05-09 09:26] LABS: Basophils Percent Auto 3.8 % (0.0-3.0); Eosinophils Absolute Auto 0.25 K/uL (0.00-0.50); Eosinophils Percent Auto 4.8 % (0.0-7.0); Hematocrit 35.7 % (37.0-53.0); Hemoglobin* 11.7 gm/dL (13.5-17.5); Immature Granulocytes Abs Auto 0.01 K/uL (0.00-0.30); Immature Granulocytes Pct Auto 0.2 %; Lymphocytes Percent Auto 14.1 % (20-44); Mean Corpuscular HGB Conc 33 gm/dL (32-36); Mean Corpuscular Hemoglobin 33 pg (26-34); Mean Corpuscular Volume 102 fL (80-100); Monocytes Percent Auto 7.5 % (0.0-11.0); Neutrophils Absolute Auto 3.64 K/uL (1.7-7.0); Neutrophils Percent Auto 69.6 % (42.0-72.0); Platelet Count* 209 K/uL (140-440); RDW Coefficient of Variation % 13.3 % (11.5-15.5); Red Blood Count 3.51 m/uL (4.30-5.90); White Blood Count* 5.23 K/uL (4.50-11.00)
[2023-05-09 09:41] LABS: Slide Review Reflex Yes
[2023-05-09 09:48] LABS: Albumin* 4.2 g/dL (3.3-5.0); Chloride* 105 mmol/L (96-114); Sodium* 133 mmol/L (135-149)
[2023-05-09 09:49] LABS: Potassium* 3.8 mmol/L (3.6-5.1)
[2023-05-09 09:51] LABS: Alanine Aminotransferase* 18 U/L (4-50); Alkaline Phosphatase* 65 U/L (40-150); Anion Gap 4 mEq/L (7-15); Aspartate Amino Transferase* 23 U/L (12-35); Bilirubin Total* 0.7 mg/dL (0.1-1.5); Blood Urea Nitrogen* 12 mg/dL (7-30); Carbon Dioxide* 24 mmol/L (20-32); Creatinine* 1.2 mg/dL (0.5-1.5); Est. Creatinine Clearance* 59.14; Estimated Glomerular Filt Rate 65 ml/min; Glucose* 147 mg/dL (60-115); Total Protein* 7.5 g/dL (6.0-8.3)
[2023-05-09 09:52] LABS: Calcium* 9.1 mg/dL (8.4-10.6)
[2023-05-09 09:59] LABS: Slide Review Acceptable Review (Acceptable)
--- NOTE | 2023-05-21 09:53 | ONC.NURNOTE ---
Derrick called to confirm Imatinib dose- held dose X 1 week due to bronchitis feels much better today still coughing but improved started back on Imatinib taking the 400mg dose QOD and now has received 100mg pills and will be taking 2 X 100mg F/U next week with Dr Terry
[2023-05-29 08:18] LABS: Basophils Percent Auto 2.4 % (0.0-3.0); Eosinophils Percent Auto 5.3 % (0.0-7.0); Hematocrit 36.7 % (37.0-53.0); Hemoglobin* 12.1 gm/dL (13.5-17.5); Immature Granulocytes Pct Auto 0.7 %; Lymphocytes Percent Auto 14.9 % (20-44); Mean Corpuscular HGB Conc 33 gm/dL (32-36); Mean Corpuscular Hemoglobin 34 pg (26-34); Mean Corpuscular Volume 102 fL (80-100); Monocytes Percent Auto 8.4 % (0.0-11.0); Neutrophils Percent Auto 68.3 % (42.0-72.0); Platelet Count* 236 K/uL (140-440); White Blood Count* 4.16 K/uL (4.50-11.00)
[2023-05-29 08:32] LABS: Albumin* 4.4 g/dL (3.3-5.0); Chloride* 104 mmol/L (96-114)
[2023-05-29 08:33] LABS: Potassium* 4.4 mmol/L (3.6-5.1); Sodium* 138 mmol/L (135-149)
[2023-05-29 08:36] LABS: Alanine Aminotransferase* 19 U/L (4-50); Alkaline Phosphatase* 74 U/L (40-150); Anion Gap 6 mEq/L (7-15); Aspartate Amino Transferase* 21 U/L (12-35); Bilirubin Total* 0.9 mg/dL (0.1-1.5); Blood Urea Nitrogen* 11 mg/dL (7-30); Calcium* 9.1 mg/dL (8.4-10.6); Carbon Dioxide* 28 mmol/L (20-32); Creatinine* 1.3 mg/dL (0.5-1.5); Est. Creatinine Clearance* 54.59; Estimated Glomerular Filt Rate 59 ml/min; Glucose* 153 mg/dL (60-115); Total Protein* 7.6 g/dL (6.0-8.3)
[2023-05-29 08:49] LABS: Slide Review Reflex Yes
[2023-05-29 15:05] LABS: Slide Review Acceptable Review (Acceptable)
[2023-06-06 22:04] LABS: QuantBCR-ABL Major p210 Result Detected; QuantBCR-ABL Major p210 Source Not Provided
[2023-06-14 22:12] LABS: QuantBCR-ABL Major p210 Result Detected; QuantBCR-ABL Major p210 Source Not Provided
[2023-06-27 14:25] LABS: Basophils Percent Auto 3.3 % (0.0-3.0); Eosinophils Absolute Auto 0.18 K/uL (0.00-0.50); Eosinophils Percent Auto 3.2 % (0.0-7.0); Hematocrit 37.8 % (37.0-53.0); Hemoglobin* 12.7 gm/dL (13.5-17.5); Immature Granulocytes Abs Auto 0.04 K/uL (0.00-0.30); Immature Granulocytes Pct Auto 0.7 %; Lymphocytes Percent Auto 13.7 % (20-44); Mean Corpuscular HGB Conc 34 gm/dL (32-36); Mean Corpuscular Hemoglobin 34 pg (26-34); Mean Corpuscular Volume 101 fL (80-100); Monocytes Percent Auto 6.9 % (0.0-11.0); Neutrophils Percent Auto 72.2 % (42.0-72.0); Platelet Count* 228 K/uL (140-440); RDW Coefficient of Variation % 12.7 % (11.5-15.5); Red Blood Count 3.74 m/uL (4.30-5.90); White Blood Count* 5.68 K/uL (4.50-11.00)
[2023-06-27 14:30] LABS: Slide Review Reflex Yes
[2023-06-27 14:38] LABS: Chloride* 102 mmol/L (96-114)
[2023-06-27 14:39] LABS: Albumin* 4.6 g/dL (3.3-5.0); Sodium* 138 mmol/L (135-149)
[2023-06-27 14:41] LABS: Bilirubin Total* 0.5 mg/dL (0.1-1.5); Creatinine* 1.3 mg/dL (0.5-1.5); Est. Creatinine Clearance* 54.59; Estimated Glomerular Filt Rate 59 ml/min
[2023-06-27 14:42] LABS: Alanine Aminotransferase* 18 U/L (4-50); Alkaline Phosphatase* 77 U/L (40-150); Anion Gap 10 mEq/L (7-15); Aspartate Amino Transferase* 21 U/L (12-35); Blood Urea Nitrogen* 12 mg/dL (7-30); Carbon Dioxide* 26 mmol/L (20-32); Glucose* 247 mg/dL (60-115); Total Protein* 7.6 g/dL (6.0-8.3)
[2023-06-27 14:43] LABS: Calcium* 9.2 mg/dL (8.4-10.6)
--- NOTE | 2023-06-29 13:49 | ONC.NURNOTE ---
Addendum entered by Jesika Schmitz RN 07/02/23 09:30: Patient has a $3320 Copay for bosutinib [facility] will contact patient about copay Patient called with this information and was instructed to request copay assist Patient informed that enrollment eligibility is based on income and that he should have his SS#/ # in household and income from 2021 or 2022 Will follow continue follow up until enrolled Original Note: Bosutinib RX faxed to [id number] with all supporting documentation Message left on patients voice mail with this information
--- NOTE | 2023-07-04 12:27 | ONC.NURNOTE ---
Received call from pt letting us know [facility] called him last evening and is setting him up with co-pay assistance.
--- NOTE | 2023-07-06 14:46 | ONC.NURNOTE ---
Darrell Hgoh772 is not able to find any robert funding to cover the $3300 monthly copay the next step is to apply for the [employer]-which if eligible based on income - under 300% FPL =$59,160 for 2 in household - if enrolled he would receive medication at no charge thru the manufactorer application will be placed in patients chart to complete when he is here next otherwise he can go the [employer] Website and navigate their online instructions message left on voicemail at patient's home
--- NOTE | 2023-07-18 13:47 | ONC.NURNOTE ---
Application faxed to [employer] [facility] for enrollment in the free drug coverage patient completed his portion on line- med list and insurance cards included
--- NOTE | 2023-07-24 09:51 | ONC.NURNOTE ---
Addendum entered by Jesika Schmitz RN 07/26/23 10:55: Successfully enrolled in the PAP for [facility]#- [id number] thru 06/24/24 Original Note: [facility] - enrollment in the the [facility] [facility] PAP has been received- is complete and has been expedited with expected review to be completed in the next 24-72 hours
[2023-07-24 12:40] LABS: Basophils Percent Auto 5.2 % (0.0-3.0); Eosinophils Percent Auto 4.2 % (0.0-7.0); Hematocrit 38.1 % (37.0-53.0); Hemoglobin* 12.8 gm/dL (13.5-17.5); Immature Granulocytes Abs Auto 0.03 K/uL (0.00-0.30); Immature Granulocytes Pct Auto 0.6 %; Lymphocytes Percent Auto 16.7 % (20-44); Mean Corpuscular HGB Conc 34 gm/dL (32-36); Mean Corpuscular Hemoglobin 33 pg (26-34); Mean Corpuscular Volume 98 fL (80-100); Monocytes Percent Auto 8.8 % (0.0-11.0); Neutrophils Absolute Auto 3.09 K/uL (1.7-7.0); Neutrophils Percent Auto 64.5 % (42.0-72.0); Platelet Count* 209 K/uL (140-440); RDW Coefficient of Variation % 12.2 % (11.5-15.5); Red Blood Count 3.87 m/uL (4.30-5.90); White Blood Count* 4.79 K/uL (4.50-11.00)
[2023-07-24 12:44] LABS: Slide Review Reflex Yes
[2023-07-24 12:50] LABS: Albumin* 4.4 g/dL (3.3-5.0); Chloride* 105 mmol/L (96-114); Potassium* 4.1 mmol/L (3.6-5.1); Sodium* 139 mmol/L (135-149)
[2023-07-24 12:52] LABS: Creatinine* 1.1 mg/dL (0.5-1.5); Est. Creatinine Clearance* 64.52; Estimated Glomerular Filt Rate 72 ml/min
[2023-07-24 12:53] LABS: Alanine Aminotransferase* 15 U/L (4-50); Alkaline Phosphatase* 65 U/L (40-150); Anion Gap 8 mEq/L (7-15); Aspartate Amino Transferase* 20 U/L (12-35); Bilirubin Total* 0.6 mg/dL (0.1-1.5); Blood Urea Nitrogen* 12 mg/dL (7-30); Calcium* 9.2 mg/dL (8.4-10.6); Carbon Dioxide* 26 mmol/L (20-32); Glucose* 138 mg/dL (60-115); Total Protein* 7.5 g/dL (6.0-8.3)
[2023-07-24 14:30] LABS: Slide Review Acceptable Review (Acceptable)
== END 2023-08-01 23:59 | disposition home or self-care (01) ==
LOC: CCIC 12:30
PROVIDERS: Clinical Nurse Specialist; PCP Physician Assistant Medical; Referring Provider Physician Assistant Medical; Visit Provider Internal Medicine Hematology & Oncology
DX: C92.10 Chronic myeloid leukemia, BCR/ABL-positive, not having achieved remission (principal); J40 Bronchitis, not specified as acute or chronic; I10 Essential (primary) hypertension; E78.5 Hyperlipidemia, unspecified; E03.9 Hypothyroidism, unspecified
CPT/HCPCS: 36415; 80053; 81206; 81207; 83615; 85025; 99202; 99205; 99212; 99213; 99214; 99215; G0463

== ENCOUNTER 2023-07-25 10:12 | Outpatient (CLI) | payer MEDICARE, SELFPAY ==
--- OUTSIDE RECORDS SUMMARY | 2023-07-25 10:31 | XMS_ITS | Clinical Summary ---
Author Name Unknown Organization [facility] Address [address] [place] [id number] Care Team Providers Care Electronic Console Display Operator Name Role Phone Jessie England PA-C Primary Care Provider Allergies Active Allergy Reactions Criticality Noted Date Comments Oxycodone Other (See Comments) 08/01/2022 Hallucinations and combative Penicillins Hives 08/01/2022 Sulfa Antibiotics Hives High 08/01/2022 Social History Tobacco Use Types Packs/Day Years Used Date Smoking Tobacco: Never Assessed Adolescent Education Answer Date Record ed Getting School Help Needed Not on file 03/16 Sex and Gender Information Value Date Recorded Sex Assigned at Not on file Gender Identity Not on file Sexual Orientation Not on file Last Filed Vital Signs Vital Sign Reading Time Taken Comments Blood Pressure 138/84 08/02/2022 1:16 AM SLIP BRIDGE OPERATOR Pulse 91 08/02/2022 1:16 AM SLIP BRIDGE OPERATOR Temperature 36.4 ??C (97.6 ??F) 08/01/2022 6:14 PM CS T Respiratory Rate 28 08/01/2022 6:11 PM SLIP BRIDGE OPERATOR Oxygen Saturation 97% 08/02/2022 1:15 AM SLIP BRIDGE OPERATOR Inhaled Oxygen Concentration - - Weight 120.2 kg (265 lb) 08/01/2022 6:11 PM SLIP BRIDGE OPERATOR Height - - Body Mass Index - - Plan of Treatment Health Maintenance Due Date Last Done Comments ADVANCE CARE PLANNING 1950 ANNUAL REVIEW OF HM ORDERS 1952 CT COLONOGRAPHY 1952 FIT 1952 FLEX SIG 1952 sDNA (Cologuard) 1950 COVID-19 Vaccine (#1) 02/08/1951 COLONOSCOPY 1962 COLORECTAL CANCER SCREENING 1962 HEPATITIS C SCREENING 1970 DTAP/TDAP/TD IMMUNIZATION (1 - Tdap) 1977 LIPID 1987 ZOSTER IMMUNIZATION (1 of 2) 2002 RSV VACCINE ( & 60+ ) (1 - 1-dose 60+ series) 2012 FALL RISK ASSESSMENT 2017 MEDICARE ANNUAL WELLNESS VISIT 2017 Pneumococcal Vaccine: 65+ Ye ars (1 of 1 - PCV) 2017 INFLUENZA VACCINE (#1) 2023 PHQ-2 (once per calendar year) 2023 AORTIC ANEURYSM SCREENING (S YSTEM ASSIGNED) Completed 08/01/2022 HPV IMMUNIZATION Aged Out No longer e ligible based on patient's age to complete this topic IPV IMMUNIZATION Aged Out No longer e ligible based on patient's age to complete this topic MENINGITIS IMMUNIZATION Aged Out No l onger eligible based on patient's age to complete this topic RSV MONOCLONAL ANTIBODY Aged Out No l onger eligible based on patient's age to complete this topic Care Teams Electronic Console Display Operator Relationship Specialty Start Date End Date Jessie England PA-C [facility] [address] [place], [place] [id number] PCP - General Physician Nurse'S Assistant 08/01/22
--- OUTSIDE RECORDS SUMMARY | 2023-07-25 10:32 | XMS_ITS | Encounter Summary ---
Author Name Unknown Organization [place] Address [facility] [place] [address] Care Team Providers Care Marketing [employer] Name Role Phone Jessie England PA-C Primary Care Provider Encounter Details Date Type Department Care Team (Latest Contact Info) Description 08/01/2022 Travel Social History Tobacco Use Types Packs/Day Years Used Date Smoking Tobacco: Never Assessed Sex and Gender Information Value Date Recorded Sex Assigned at Not on file Gender Identity Not on file Sexual Orientation Not on file COVID-19 Exposure Response Date Recorded In the last 10 days, have yo u been in contact with someone who was confirmed or suspected to have Coronavirus/COVID-19? No / Unsure 08/01/2022 5:42 PM SUPPLY CHAIN GENERALIST documented as of this encounter Plan of Treatment Not on file documented as of this encounter Visit Diagnoses Not on filedocumented in this encounter Additional Health Concerns Infection Onset Date Last Indicated Resolved Time Rule Out COVID-19 08/01/2022 08/01/2022 08/02/2022 12:25 AM SUPPLY CHAIN GENERALIST documented as of this encounter Care Teams [employer] Relationship Specialty Start Date End Date Jessie England PA-C [facility] [address] [place] [address] PCP - General Physician Corner Bead Operator 08/01/22 documented as of this encounter
--- OUTSIDE RECORDS SUMMARY | 2023-07-25 10:32 | XMS_ITS | Referral Summary ---
Author Name Unknown Organization [place] Address [facility] [place] [address] Care Team Providers Care Supervisor [employer] Name Role Phone Jessie England PA-C Primary [...] Comments Blood Pressure 138/84 08/02/2022 1:16 AM VICE PRESIDENT OF SOFTWARE DEVELOPMENT Pulse 91 08/02/2022 1:16 AM VICE PRESIDENT OF SOFTWARE DEVELOPMENT Temperature 36.4 ??C (97.6 ??F) 08/01/2022 6:14 PM CS T Respiratory Rate 28 08/01/2022 6:11 PM VICE PRESIDENT OF SOFTWARE DEVELOPMENT Oxygen Saturation 97% 08/02/2022 1:15 AM VICE PRESIDENT OF SOFTWARE DEVELOPMENT Inhaled Oxygen Concentration - - Weight 120.2 kg (265 lb) 08/01/2022 6:11 PM VICE PRESIDENT OF SOFTWARE DEVELOPMENT Height - - Body Mass Index - - Plan of Treatment Not on file Care Teams Supervisor Paste Plant Relationship Specialty Start Date End Date Jessie England PA-C [facility] [address] [place] [address] PCP - General Physician Qa Reviewer 08/01/22
--- OUTSIDE RECORDS SUMMARY | 2023-07-25 10:32 | XMS_ITS | Encounter Summary ---
Author Name Unknown Organization [facility] Address [address] [facility] [place] [address] Care Team Providers Care Senior Industrial Engineer Name Role Phone Jessie England PA-C Primary Care Provider Reason for Referral * Consultation (Priority: 1-2 Weeks) - Pending Review Specialty Diagnoses / Procedures Referred By Shira lopez Referred To Contact Diagnoses Memory difficulty Infection due to 2019 novel coronavirus Lobito Alvarez MD [address] [place] [address] Referral ID Status Reason Start Date Expiration Date V isits Requested Visits Authorized [id number] Pending Review 08/02/2022 08/02/2023 1 1 Question Answer Reason for Referral: General Neurology Scheduling Instructions: [facility] will call you to coordinate your care as prescribed by your provider. If you don't hear from a membership sales representative within 2 business days, please call . Additional Information: Memory issues but COVID+ today Comments Please be aware that coverage of these services is subject to the terms and limitations of your health insurance plan. Call member services at your health plan with any benefit or coverage questions. [facility] will call you to coordinate your care as prescribed by your provider. If you don't hear from a membership sales representative within 2 business days, please call . TCHER DRIER OPERATOR Reason for Visit * Reason Comments Shortness of Breath Altered Mental Status Hypoglycemia Encounter Details Date Type Department Care Team ([facility] Contact Info) Description 08/01/2022 6:17 PM STRETCHER DRIER OPERATOR - 08/02/2022 1:21 AM STRETCHER DRIER OPERATOR Emergency [facility] Emergency Room [address] [place] [address] Loly John Oscar, [address] [place] [address] Lobito Alvarez MD [address] [place], [place] [id number] Bronchitis; Memory difficulty; Infection due to 2019 novel coronavirus Discharge Disposition: Home or Self Care Social History Tobacco Use Types Packs/Day Years [...] Coronavirus/COVID-19? No / Unsure 08/01/2022 5:42 PM STRETCHER DRIER OPERATOR documented as of this encounter Last Filed Vital Signs Vital Sign Reading Time Taken Comments Blood Pressure 138/84 08/02/2022 1:16 AM STRETCHER DRIER OPERATOR Pulse 91 08/02/2022 1:16 AM STRETCHER DRIER OPERATOR Temperature 36.4 ??C (97.6 ??F) 08/01/2022 6:14 PM CS T Respiratory Rate 28 08/01/2022 6:11 PM STRETCHER DRIER OPERATOR Oxygen Saturation 97% 08/02/2022 1:15 AM STRETCHER DRIER OPERATOR Inhaled Oxygen Concentration - - Weight 120.2 kg (265 lb) 08/01/2022 6:11 PM STRETCHER DRIER OPERATOR Height - - Body Mass Index - - documented in this encounter Discharge Instructions * Discharge Instructions* Lobito Alvarez MD - 08/02/2022 12:58 AM STRETCHER DRIER OPERATOR Your memory problems may be due to COVID infection. This may improve as you recover. Follow-up withneurology in 1 to 2 weeks TCHER DRIER OPERATOR * Attachments The following attachments cannot be sent through Care Everywhere. * Coronavirus Disease 2019 (COVID-19)- Overview (Jamaican) * Coping with Memory Loss (Jamaican) documented in this encounter Progress Notes * Hirschman, Lobito, RT - 08/01/2022 9:27 PM CST BP (!) 166/99 Pulse 74 Temp 97.6 ??F (36.4 ??C) Resp 28 Wt 120.2 kg (265 lb) SpO2 99% The PT was provided a neb per MD order. His BS were clear and diminished both pre and post. RT willcontinue to follow as directed. TCHER DRIER OPERATOR documented in this encounter ED Notes * Lobito Alvarez MD - 08/01/2022 10:17 PM CST EMERGENCY DEPARTMENT SIGN OUT NOTE ED COURSE AND MEDICAL DECISION MAKING Patient was signed out to me by Dr John Salcido at 10:12 PM In brief, Sam Hernandez is a 71 year old male who initially presented with confusion. Patient with recent upper respiratory infection, started on prednisone and antibiotics without significant improvement. Now with some confusion over the last couple of days. Labs so far independently interpreted by me demonstrate elevated creatinine, glucose slightly low, CBC is reassuring. CT scan of the abdomenshows some skin stranding inferiorly, clinically this is not evident. CT with diffuse bronchial wall thickening suggestive of bronchitis and patient does have some wheezing on exam, DuoNeb has been ordered. CT scan of the head is negative, MRI is pending. If MRI is negative, patient can be discharged for follow-up with neurology. If respiratory status improved, can be discharged home. 11:57 PM MRI does not demonstrate any acute ischemia. Venous blood gas independently interpreted byme does not demonstrate hypercarbia, normal pH. Urinalysis is pending, COVID test pending. 12:53 AM COVID positive which is likely cause of patient's dyspnea today. Patient is not a candidate for antivirals given duration of time since onset of symptoms. On recheck, he has no respiratory distress or increased work of breathing, up to the bathroom without difficulty and can be discharged with outpatient follow-up FINAL IMPRESSION 1. Bronchitis 2. Memory difficulty 3. Infection due to 2019 novel coronavirus ED MEDS Medications iopamidol (ISOVUE-370) solution 100 mL (100 mLs Intravenous Given 08/01/221935) 0.9% sodium chloride BOLUS (0 mLs Intravenous Stopped 08/01/222117) ipratropium - albuterol 0.5 mg/2.5 mg/3 mL (DUONEB) neb solution 3 mL (3 mLs Nebulization Given 08/01/222001) LORazepam (ATIVAN) injection 0.5 mg (0.5 mg Intravenous Given 08/01/222215) LAB Labs Ordered and Resulted from Time of ED Arrival to Time of ED Departure BASIC METABOLIC PANEL - Abnormal Result Value Sodium 134 (*) Potassium 4.7 Chloride 103 Carbon Dioxide (CO2) 19 (*) Anion Gap 12 Urea Nitrogen 37 (*) Creatinine 2.12 (*) Calcium 9.8 Glucose 63 (*) GFR Estimate 33 (*) ISTAT CREATININE POCT - Abnormal Creatinine POCT 2.3 (*) GFR, ESTIMATED POCT 30 (*) CBC WITH PLATELETS AND DIFFERENTIAL - Abnormal WBC Count 8.4 RBC Count 3.73 (*) Hemoglobin 12.0 (*) Hematocrit 34.5 (*) MCV 93 MCH 32.2 MCHC 34.8 RDW 14.5 Platelet Count 311 DIFFERENTIAL - Abnormal % Neutrophils 64 % Lymphocytes 22 % Monocytes 11 % Eosinophils 2 % Basophils 0 % Metamyelocytes 1 Absolute Neutrophils 5.4 Absolute Lymphocytes 1.8 Absolute Monocytes 0.9 Absolute Eosinophils 0.2 Absolute Basophils 0.0 Absolute Metamyelocytes 0.1 (*) RBC Morphology Confirmed RBC Indices Platelet Assessment Value: Automated Count Confirmed. Platelet morphology is normal. INFLUENZA A/B & SARS-COV2 PCR MULTIPLEX - Abnormal Influenza A PCR Negative Influenza B PCR Negative RSV PCR Negative SARS CoV2 PCR Positive (*) BLOOD GAS VENOUS - Abnormal pH Venous 7.43 pCO2 Venous 31 (*) pO2 Venous 120 (*) Bicarbonate Venous 20 (*) Base Excess/Deficit (+/-) -4.3 Oxyhemoglobin Venous 97.6 (*) O2 Sat, Venous 99.6 (*) GLUCOSE BY METER - Normal GLUCOSE BY METER POCT 70 TROPONIN I - Normal Troponin I 0.03 ROUTINE UA WITH MICROSCOPIC REFLEX TO CULTURE RADIOLOGY MR Brain w/o Contrast Final Result IMPRESSION: 1. Motion degraded exam. 2. No definite acute intracranial pathology identified. 3. Age-related changes with a chronic lacunar infarct in the left basal ganglia. 4. Pansinusitis. CT Abdomen Pelvis w Contrast Final Result IMPRESSION: 1. Skin thickening and subcutaneous stranding in the anterior lower abdomen. Correlate clinically for cellulitis. No fluid collections. 2. Mild splenomegaly. 3. No other etiology identified to explain patient's abdominal pain. CT Chest Pulmonary Embolism w Contrast Final Result IMPRESSION: 1. No pulmonary embolism. 2. Diffuse bronchial wall thickening, suggesting bronchitis. 3. No consolidations or pleural effusions. 4. Two small groundglass nodules in the left upper lobe measuring up to 7 mm, possibly inflammatory. Follow-up guidelines below. 5. Severe coronary arterial calcifications. 6. Incidental 1.9 cm right thyroid nodule. Consider further evaluation with a dedicated thyroid ultrasound on a nonemergent basis, if not previously performed. REFERENCE: Guidelines for Management of Incidental Pulmonary Nodules Detected on CT Images: From the Fleischner Society 2017. Guidelines apply to incidental nodules in patients who are 35 years or older. Guidelines do not apply to lung cancer screening, patients with immunosuppression, or patients withknown primary cancer. SUBSOLID NODULES Multiple CT at 3-6 months. If stable, consider CT at 2 [address] w/o contrast Final Result IMPRESSION: 1. No acute intracranial hemorrhage, mass, or herniation. 2. Mild nonspecific white matter changes most likely due to chronic microvascular ischemic disease. 3. Marked opacification of the paranasal sinuses with air-fluid layers in the maxillary sinuses. This could represent acute sinusitis in the appropriate clinical setting. DISCHARGE MEDS New Prescriptions No medications on file Lobito Alvarez MD [facility] EMERGENCY ROOM [facility]3] [id number] Lobito Alvarez MD 08/02/22 0059 TCHER DRIER OPERATOR * Jeannie Ellis RN - 08/01/2022 6:14 PM CST Pt arrives with increasing confusion/memory loss for the past few weeks. According to his son who is present he has been leaving the house and forgetting where he going, unable to find words to answer questions, and is disoriented to time, place and slightly to situation. Pt breathing fast in triage. Diabetic, BS 70. Triage Assessment Row Name 02/07/23 1812 Triage Assessment (Adult) Airway WDL WDL Respiratory WDL Respiratory WDL rhythm/pattern Rhythm/Pattern, Respiratory tachypneic Skin Circulation/Temperature WDL Skin Circulation/Temperature WDL WDL Cardiac WDL Cardiac WDL WDL Peripheral/Neurovascular WDL Peripheral Neurovascular WDL WDL Cognitive/Neuro/Behavioral WDL Cognitive/Neuro/Behavioral WDL orientation Orientation disoriented to;place;time TCHER DRIER OPERATOR * John Salcido, - 08/01/2022 5:41 PM CST EMERGENCY DEPARTMENT ENCOUNTER NAME: Sam Hernandez AGE: [age] year old male DATE OF : 1950 EVALUATION DATE & TIME: 08/01/2022 6:17 PM PCP: No primary care provider on file. ED PROVIDER: John Salcido D.O. Chief Complaint Patient presents with ??? Shortness of Breath ??? Altered Mental Status ??? Hypoglycemia FINAL IMPRESSION: 1. Bronchitis 2. Memory difficulty ED COURSE & MEDICAL DECISION MAKIN:53 PM I met with the patient to gather history and to perform my initial exam. I discussed the plan for care while in the Emergency Department. 9:07 PM I updated the patient on his CT chest results. 10:11 PM I signed the patient out to Dr. Alvarez. ED Course as of 08/02/22 0742 SunAug 01, [id number] Hemoglobin(!): 12.0 Pertinent Labs & Imaging studies reviewed. (See chart for details) 71 year old male presents to the Emergency Department for evaluation of shortness of breath and difficulties with memory. Patient report of specific items that he cannot remember made for concern forpotential transient global amnesia type symptoms though his symptoms have not resolved. With this Iwas concerned for the potential for stroke versus simple memory loss. Additionally with the shortness of breath was concern for the potential of PE versus pneumonia versus bronchitis as an underlyingcause. Clinically was not concern for ACS, especially with his unremarkable EKG, and negative troponin. CT imaging did not show evidence of acute pathology that could these explain his symptoms otherthan evidence of bronchitis, and CT abdomen was unremarkable for evidence of surgical pathology or other emergent pathology. I have informed the patient of the findings of the nodules in the chest and the neck. Therefore I have ordered an MRI to evaluate for the potential for stroke. This is unremarkable, and he has improvement in breathing with the DuoNeb ordered, I believe it is likely that this patient can be discharged home. However if he is still having significant shortness of breath, or is otherwise significantly symptomatic, do believe patient would benefit from admission. Patient care turned over for final disposition pending MRI and reevaluation. Medical Decision Making History: ??? Supplemental history from:Son ??? External Record(s) reviewed: I reviewed the patients medical history and chart. Work Up: ??? Chart documentation includes differential considered and any EKGs or imaging independently interpreted by provider, where specified. ??? In additional to work up documented, I considered the following work up: Documented in chart, if applicable. External consultation: ??? Discussion of management with another provider: Documented in chart, if applicable Complicating factors: ??? Care impacted by chronic illness: Diabetes ??? Care affected by social determinants of health: N/A Disposition considerations: Admission considered. Patient was signed out to the oncoming physician,disposition pending. At the conclusion of the encounter I discussed the results of all of the tests and the disposition.The questions were answered. The patient or family acknowledged understanding and was agreeable with the care plan. HPI Patient information was obtained from: Patient and son Use of Flight Crew Time Clerk: N/A Sam Hernandez is a 71 year old male who presents to the ED for an evaluation of shortness of breath Per son, For the past few weeks the patient has been ill with a viral illness. The patient was prescribed prednisone and antibiotics for this but they did not provide any significant relief. Then over the past few days the patient began to experience increased memory issues. The son noticed that the patienthas been having difficulty knowing and connecting simple everyday things that he normally knows. The patient currently endorses shortness of breath, cough, sore throat, body aches and lightheadedness. He denies any smoking or alcohol use. The patient denies any fevers, chest pain, nausea, vomiting, diarrhea, abdominal pain, or any other complaints. The patients past medical issues include diabetes, hypertension, GERD and hypothyroidism. The patient also notes several major surgeries in past that include surgery on both wrists and knees and a cholecystectomy. REVIEW OF SYSTEMS Constitutional: Denies fever, chills, weight loss or weakness Eyes: No pain, discharge, redness HENT: Denies ear pain, congestion. Positive for sore throat Respiratory: No wheeze. Positive for cough and shortness of breath. Cardiovascular: No CP, palpitations GI: Denies abdominal pain, nausea, vomiting, diarrhea : Denies dysuria, hematuria Musculoskeletal: Denies any new muscle/joint pain, swelling or loss of function. Skin: Denies rash, pallor Neurologic: Denies headache, focal weakness or sensory changes Lymph: Denies swollen nodes All other systems negative unless noted in HPI. PAST MEDICAL HISTORY: No past medical history on file. PAST SURGICAL HISTORY: No past surgical history on file. CURRENT MEDICATIONS: No current facility-administered medications for this encounter. No current outpatient medications on file. ALLERGIES: Allergies Allergen Reactions ??? Sulfa Drugs Hives ??? Oxycontin [Oxycodone] Other (See Comments) Hallucinations and combative ??? Penicillins Hives FAMILY HISTORY: No family history on file. SOCIAL HISTORY: Social History Socioeconomic History ??? Marital status: Unknown VITALS: Patient Vitals for the past 24 hrs: BP Temp Pulse Resp SpO2 Weight 08/01/22 1830 (!) 166/99 -- 74 -- 99 % -- 08/01/22 1814 -- 97.6 ??F (36.4 ??C) -- -- -- -- 08/01/22 1811 135/81 -- 81 28 99 % 120.2 kg (265 lb) PHYSICAL EXAM VITAL SIGNS: BP (!) 166/99 Pulse 74 Temp 97.6 ??F (36.4 ??C) Resp 28 Wt 120.2 kg (265 lb) SpO2 99% General Appearance: Well-appearing, well-nourished, no acute distress Head: Normocephalic, without obvious abnormality, atraumatic Eyes: PERRL, conjunctiva/corneas clear, EOM's intact, ENT: Lips, mucosa, and tongue normal, membranes are moist without pallor Neck: Normal ROM, symmetrical, trachea midline Cardio: Regular rate and rhythm, no murmur, rub or gallop, 2+ pulses symmetric in all extremities. Increased rate of breathing. Pulm: Clear to auscultation bilaterally, respirations unlabored. Wheezing on diffuse right lung. Abdomen: Soft, non-tender, no rebound or guarding. Right upper quadrant tenderness. Musculoskeletal: Full ROM, no edema, no cyanosis, good ROM of major joints Integument: Warm, Dry, No erythema, No rash. Neurologic: Patient is alert and oriented ??3. Face is symmetric. Speech is normal. Visual ilttle are full. Cranial nerves II through XII are grossly intact. Motor tone is 5/5 and equal in both upperand lower extremities. Bilateral symmetric sensation grossly intact upper and lower. Neg finger-nose. Neg heel-beard. Psychiatric: Affect normal, Judgment normal, Mood normal. LABS Results for orders placed or performed during the hospital encounter of 08/01/22 (from the past 24 hour(s)) Glucose by meter Result Value Ref Range GLUCOSE BY METER POCT 70 70 - 99 mg/dL ECG 12-LEAD WITH MUSE (LHE) Result Value Ref Range Systolic Blood Pressure mmHg Diastolic Blood Pressure mmHg Ventricular Rate 82 BPM Atrial Rate 82 BPM MI Interval 166 ms QRS Duration 90 ms QT 374 ms QTc 436 ms P [place] 58 degrees R AXIS -10 degrees T [place] 45 degrees Interpretation ECG Sinus rhythm Minimal voltage criteria for LVH, may be normal variant Borderline ECG No previous ECGs available Confirmed by SEE ED PROVIDER NOTE FOR, ECG INTERPRETATION ([id number]), editor news MODESTA ABDULLAHI ([id number]) on 08/01/2022 7:19:50 PM [place] Draw Narrative The following orders were created for panel order [place] Draw. Procedure Abnormality Status --------- ------ Extra Blue Top Tube[[id number]] Final result Extra Red Top Tube[[id number]] Final result Extra Green Top (Wiggins...[[id number]] Final result Extra Purple Top Tube[[id number]] Final result Please view results for these tests on the individual orders. Extra Blue Top Tube Result Value Ref Range Hold Specimen JIC Extra Red Top Tube Result Value Ref Range Hold Specimen JIC Extra Green Top (Wiggins Heparin) Tube Result Value Ref Range Hold Specimen JIC Extra Purple Top Tube Result Value Ref Range Hold Specimen JIC CBC with platelets + differential Narrative The following orders were created for panel order CBC with platelets + differential. Procedure Abnormality Status --------- ------ CBC with platelets and d...[[id number]] Abnormal Final result Manual Differential[[id number]] Abnormal Final result Please view results for these tests on the individual orders. Basic metabolic panel Result Value Ref Range Sodium 134 (L) 136 - 145 mmol/L Potassium 4.7 3.5 - 5.0 mmol/L Chloride 103 98 - 107 mmol/L Carbon Dioxide (CO2) 19 (L) 22 - 31 mmol/L Anion Gap 12 5 - 18 mmol/L Urea Nitrogen 37 (H) 8 - 22 mg/dL Creatinine 2.12 (H) 0.70 - 1.30 mg/dL Calcium 9.8 8.5 - 10.5 mg/dL Glucose 63 (L) 70 - 125 mg/dL GFR Estimate 33 (L) >60 mL/min/1.73m2 Troponin I (now) Result Value Ref Range Troponin I 0.03 0.00 - 0.29 ng/mL CBC with platelets and differential Result Value Ref Range WBC Count 8.4 4.0 - 11.0 10e3/uL RBC Count 3.73 (L) 4.40 - 5.90 10e6/uL Hemoglobin 12.0 (L) 13.3 - 17.7 g/dL Hematocrit 34.5 (L) 40.0 - 53.0 % MCV 93 78 - 100 fL MCH 32.2 26.5 - 33.0 pg MCHC 34.8 31.5 - 36.5 g/dL RDW 14.5 10.0 - 15.0 % Platelet Count 311 150 - 450 10e3/uL Manual Differential Result Value Ref Range % Neutrophils 64 % % Lymphocytes 22 % % Monocytes 11 % % Eosinophils 2 % % Basophils 0 % % Metamyelocytes 1 % Absolute Neutrophils 5.4 1.6 - 8.3 10e3/uL Absolute Lymphocytes 1.8 0.8 - 5.3 10e3/uL Absolute Monocytes 0.9 0.0 - 1.3 10e3/uL Absolute Eosinophils 0.2 0.0 - 0.7 10e3/uL Absolute Basophils 0.0 0.0 - 0.2 10e3/uL Absolute Metamyelocytes 0.1 (H) <=0.0 10e3/uL RBC Morphology Confirmed RBC Indices Platelet Assessment Automated Count Confirmed. Platelet morphology is normal. Automated Count Confirmed. Platelet morphology is normal. Head CT w/o contrast Narrative EXAM: CT HEAD W/O CONTRAST LOCATION: [facility] DATE/TIME: 08/01/2022 7:19 PM INDICATION: AMS COMPARISON: None. TECHNIQUE: Routine CT Head without IV contrast. Multiplanar reformats. Dose reduction techniques were used. FINDINGS: INTRACRANIAL CONTENTS: No intracranial hemorrhage, extraaxial collection, or mass effect. No CT evidence of acute infarct. Mild presumed chronic small vessel ischemic changes. Normal ventricles and sulci. VISUALIZED ORBITS/SINUSES/MASTOIDS: No intraorbital abnormality. Marked opacification of the paranasal sinuses. There are air-fluid layers in the maxillary sinuses. No middle ear or mastoid effusion. BONES/SOFT TISSUES: No acute abnormality. Impression IMPRESSION: 1. No acute intracranial hemorrhage, mass, or herniation. 2. Mild nonspecific white matter changes most likely due to chronic microvascular ischemic disease. 3. Marked opacification of the paranasal sinuses with air-fluid layers in the maxillary sinuses. This could represent acute sinusitis in the appropriate clinical setting. Creatinine POCT Result Value Ref Range Creatinine POCT 2.3 (H) 0.7 - 1.3 mg/dL GFR, ESTIMATED POCT 30 (L) >60 mL/min/1.73m2 [facility] Draw Narrative The following orders were created for panel order [place] Draw. Procedure Abnormality Status --------- ------ Extra Red Top Tube[[id number]] Final result Extra Green Top (Wiggins...[[id number]] Final result Extra Purple Top Tube[[id number]] Final result Please view results for these tests on the individual orders. Extra Red Top Tube Result Value Ref Range Hold Specimen JIC Extra Green Top (Wiggins Heparin) Tube Result Value Ref Range Hold Specimen JIC Extra Purple Top Tube Result Value Ref Range Hold Specimen JIC CT Chest Pulmonary Embolism w Contrast Narrative EXAM: CT CHEST PULMONARY EMBOLISM W CONTRAST LOCATION: [facility] DATE/TIME: 08/01/2022 7:49 PM INDICATION: Dyspnea. Concern for pulmonary embolism. COMPARISON: None. TECHNIQUE: CT chest pulmonary angiogram during arterial phase injection of IV contrast. Multiplanarreformats and MIP reconstructions were performed. Dose reduction techniques were used. CONTRAST: Isovue 370 100mL FINDINGS: ANGIOGRAM CHEST: Pulmonary arteries are normal caliber and negative for pulmonary emboli. Thoracic aorta is negative for dissection. No CT evidence of right heart strain. LUNGS AND PLEURA: Diffuse bronchial wall thickening, suggesting bronchitis. No consolidations or pleural effusions. Two subpleural groundglass nodules measuring 7 mm in left upper lobe (4/#80) and 7 mm within the lingula (4/#159). MEDIASTINUM/AXILLAE: No normal cardiac size. No pericardial effusion. Hypodense 1.9 cm right thyroid nodule (3/#30). No enlarged thoracic lymph node. CORONARY ARTERY CALCIFICATION: Severe. UPPER ABDOMEN: Status post cholecystectomy. No biliary ductal dilation. MUSCULOSKELETAL: Multilevel degenerative changes of the spine. No acute bony abnormality. Impression IMPRESSION: 1. No pulmonary embolism. 2. Diffuse bronchial wall thickening, suggesting bronchitis. 3. No consolidations or pleural effusions. 4. Two small groundglass nodules in the left upper lobe measuring up to 7 mm, possibly inflammatory. Follow-up guidelines below. 5. Severe coronary arterial calcifications. 6. Incidental 1.9 cm right thyroid nodule. Consider further evaluation with a dedicated thyroid ultrasound on a nonemergent basis, if not previously performed. REFERENCE: Guidelines for Management of Incidental Pulmonary Nodules Detected on CT Images: From the Fleischner Society 2017. Guidelines apply to incidental nodules in patients who are 35 years or older. Guidelines do not apply to lung cancer screening, patients with immunosuppression, or patients withknown primary cancer. SUBSOLID NODULES Multiple CT at 3-6 months. If stable, consider CT at [address] Abdomen Pelvis w Contrast Narrative EXAM: CT ABDOMEN PELVIS W CONTRAST LOCATION: [facility] DATE/TIME: 08/01/2022 7:55 PM INDICATION: RLQ abdominal pain COMPARISON: None. TECHNIQUE: CT scan of the abdomen and pelvis was performed following injection of IV contrast. Multiplanar reformats were obtained. Dose reduction techniques were used. CONTRAST: Isovue 370 100mL FINDINGS: LOWER CHEST: Advanced coronary artery calcification. HEPATOBILIARY: Mild steatosis. Cholecystectomy without ductal dilatation. PANCREAS: Unremarkable SPLEEN: Mild splenomegaly reaching 13.8 cm. ADRENAL GLANDS: Unremarkable KIDNEYS/BLADDER: No hydronephrosis. Bladder is thick-walled but not well-distended. BOWEL: Normal caliber appendix. No bowel obstruction. LYMPH NODES: No significant retroperitoneal adenopathy VASCULATURE: No abdominal aortic aneurysm. Patent portal vein. PELVIC ORGANS: Prostatic hypertrophy. No free fluid. MUSCULOSKELETAL: Small fat-containing bilateral inguinal hernias. Skin thickening and subcutaneous stranding in the anterior lower abdomen. No fluid collections.No acute bony abnormalities. Moderate multilevel spondylosis, most advanced in the lower thoracic spine. Impression IMPRESSION: 1. Skin thickening and subcutaneous stranding in the anterior lower abdomen. Correlate clinically for cellulitis. No fluid collections. 2. Mild splenomegaly. 3. No other etiology identified to explain patient's abdominal pain. RADIOLOGY CT Abdomen Pelvis w Contrast Final Result IMPRESSION: 1. Skin thickening and subcutaneous stranding in the anterior lower abdomen. Correlate clinically for cellulitis. No fluid collections. 2. Mild splenomegaly. 3. No other etiology identified to explain patient's abdominal pain. CT Chest Pulmonary Embolism w Contrast Final Result IMPRESSION: 1. No pulmonary embolism. 2. Diffuse bronchial wall thickening, suggesting bronchitis. 3. No consolidations or pleural effusions. 4. Two small groundglass nodules in the left upper lobe measuring up to 7 mm, possibly inflammatory. Follow-up guidelines below. 5. Severe coronary arterial calcifications. 6. Incidental 1.9 cm right thyroid nodule. Consider further evaluation with a dedicated thyroid ultrasound on a nonemergent basis, if not previously performed. REFERENCE: Guidelines for Management of Incidental Pulmonary Nodules Detected on CT Images: From the Fleischner Society 2017. Guidelines apply to incidental nodules in patients who are 35 years or older. Guidelines do not apply to lung cancer screening, patients with immunosuppression, or patients withknown primary cancer. SUBSOLID NODULES Multiple CT at 3-6 months. If stable, consider CT at 2 [address] w/o contrast Final Result IMPRESSION: 1. No acute intracranial hemorrhage, mass, or herniation. 2. Mild nonspecific white matter changes most likely due to chronic microvascular ischemic disease. 3. Marked opacification of the paranasal sinuses with air-fluid layers in the maxillary sinuses. This could represent acute sinusitis in the appropriate clinical setting. MR Brain w/o Contrast (Results Pending) EKG: Rate: 82bpm Rhythm: Normal Sinus Rhythm [place]: Normal Interval: Normal Conduction: Normal QRS: Normal ST: Normal T-wave: Normal QT: Not prolonged Comparison EKG: no previous available for comparison Impression: No acute ischemic change I have independently reviewed and interpreted today's EKG, pending Liquid Fertilizer Servicer read MEDICATIONS GIVEN IN THE EMERGENCY: Medications iopamidol (ISOVUE-370) solution 100 mL (100 mLs Intravenous Given 08/01/221935) 0.9% sodium chloride BOLUS (500 mLs Intravenous New Bag 08/01/221949) ipratropium - albuterol 0.5 mg/2.5 mg/3 mL (DUONEB) neb solution 3 mL (3 mLs Nebulization Given 08/01/222001) NEW PRESCRIPTIONS STARTED AT TODAY'S ER VISIT New Prescriptions No medications on file I, Breenice Solares, am serving as a scribe to document services personally performed by John Salcido D.O., based on my observations and the provider's statements to me. I, John Salcido D.O., attestthat Berenice Solares is acting in a scribe capacity, has observed my performance of the services and has documented them in accordance with my direction. John Salcido D.O. 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 Priority: 1-2 Weeks Memory difficulty Infection due to 2019 novel coronavirus Expected: 08/02/2022 (Approximate), Expires: 08/02/2023 documented as of this encounter Procedures Procedure Name Priority Date/Time Associated Diagnosis Comments INFLUENZA A/B & SARS-COV2 PCR MULTIPLEX STAT 08/01/2022 11:42 PM STRETCHER DRIER OPERATOR BLOOD GAS VENOUS STAT 08/01/2022 11:4 2 PM STRETCHER DRIER OPERATOR MR BRAIN W/O CONTRAST STAT 08/01/2022 10:42 [address]CH[address] DRIER OPERATOR CT ABDOMEN PELVIS W CONTRAST STAT 08/01/2022 7:55 PM STRETCHER DRIER OPERATOR CT CHEST PULMONARY EMBOLISM W CONTRAST STAT 08/01/2022 7:49 PM STRETCHER DRIER OPERATOR EXTRA TUBE STAT 08/01/2022 7:41 PM STRETCHER DRIER OPERATOR EXTRA PURPLE TOP TUBE STAT 08/01/2022 7:41 PM STRETCHER DRIER OPERATOR EXTRA GREEN TOP (LITHIUM HEPARIN) TUBE STAT 08/01/2022 7:41 PM STRETCHER DRIER OPERATOR EXTRA RED TOP TUBE STAT 08/01/2022 7: 41 PM STRETCHER DRIER OPERATOR ISTAT CREATININE POCT STAT 08/01/2022 7:20 PM STRETCHER DRIER OPERATOR CT HEAD W/O CONTRAST STAT 08/01/2022 7:19 PM STRETCHER DRIER OPERATOR EXTRA TUBE STAT 08/01/2022 6:40 PM STRETCHER DRIER OPERATOR EXTRA PURPLE TOP TUBE STAT 08/01/2022 6:40 PM STRETCHER DRIER OPERATOR EXTRA GREEN TOP (LITHIUM HEPARIN) TUBE STAT 08/01/2022 6:40 PM STRETCHER DRIER OPERATOR EXTRA RED TOP TUBE STAT 08/01/2022 6: 40 PM STRETCHER DRIER OPERATOR EXTRA BLUE TOP TUBE STAT 08/01/2022 6 :40 PM STRETCHER DRIER OPERATOR CBC WITH PLATELETS AND DIFFERENTIAL STAT 08/01/2022 6:40 PM STRETCHER DRIER OPERATOR CBC WITH PLATELETS & DIFFERENTIAL STAT 08/01/2022 6:40 PM STRETCHER DRIER OPERATOR TROPONIN I STAT 08/01/2022 6:40 PM STRETCHER DRIER OPERATOR DIFFERENTIAL STAT 08/01/2022 6:40 PM STRETCHER DRIER OPERATOR BASIC METABOLIC PANEL STAT 08/01/2022 6:40 PM STRETCHER DRIER OPERATOR ECG 12-LEAD WITH MUSE ? SJN,SJO,WWH STAT 08/01/2022 6:15 PM STRETCHER DRIER OPERATOR GLUCOSE BY METER STAT 08/01/2022 6:09 PM STRETCHER DRIER OPERATOR documented in this encounter Results * (ABNORMAL) Blood gas venous (08/01/2022 11:42 PM STRETCHER DRIER OPERATOR) pH Venous 7.43 7.35 - 7.45 08/01/2022 11:45 PM STRETCHER DRIER OPERATOR [facility] pCO2 Venous 31(L) 35 - 50 mm Hg 08/01/2022 11:45 PM STRETCHER DRIER OPERATOR [facility] pO2 Venous 120(H) 25 - 47 mm Hg 08/01/2022 11:45 PM STRETCHER DRIER OPERATOR [facility] Bicarbonate Venous 20(L) 24 - 30 mmol/L 08/01/2022 11:45 PM STRETCHER DRIER OPERATOR [facility] Base Excess/Deficit Venous -4.3 mmol/L 08/01/2022 11:45 PM [facility] Oxyhemoglobin Venous 97.6(H) 70.0 - 75.0 % 08/01/2022 11:45 PM STRETCHER DRIER OPERATOR [facility] O2 Sat, Venous 99.6(H) 70.0 - 75.0 % 08/01/2022 11:45 PM STRETCHER DRIER OPERATOR [facility] Blood, venous BLOOD SPECIMEN / Unknown Venipuncture / Unknown 08/01/2022 11:42 PM STRETCHER DRIER OPERATOR 08/01/2022 11:42 PM STRETCHER DRIER OPERATOR Lobito Alvarez MD LAB - BLOOD ORDERAB LES Performing Organization Address [facility]/State/ZIP Co de Phone Number [facility] [address] [place] [address], [facility] [phone] * (ABNORMAL) Symptomatic Influenza A/B & SARS-CoV2 (COVID-19) Virus PCR Multiplex Nasopharyngeal (08/01/2022 11:42 PM STRETCHER DRIER OPERATOR) Pathologist [facility] [place] Influenza A PCR Negative Negative 08/02/2022 12:25 AM STRETCHER DRIER OPERATOR [facility] Influenza B PCR Negative Negative 08/02/2022 12:25 AM [facility] RSV PCR Negative Negative 08/02/2022 12:25 AM STRETCHER DRIER OPERATOR [facility] SARS CoV2 PCR Positive(A) Negative 08/02/2022 12:25 AM STRETCHER DRIER OPERATOR [facility] Comment:POSITIVE: SARS-CoV-2 (COVID-19) RNA detected, presumed positive. Swab NASOPHARYNGEAL STRUCTURE / Unknown Non-blood Collection / Unknown 08/01/2022 11:42 PM STRETCHER DRIER OPERATOR 08/01/2022 11:46 PM STRETCHER DRIER OPERATOR Narrative [facility] - 08/02/2022 12:25 AM STRETCHER DRIER OPERATOR Testing was performed using the Xpert Xpress CoV2/Flu/RSV Assay on the [employer] GeneXpert Instrument. This test should be ordered for the detection of SARS-CoV-2 and influenza viruses in individuals who meet clinical and/or epidemiological criteria. Test performance is unknown in asymptomatic patients. This test is for in vitro diagnostic use under the FDA EUA for laboratories certified under CLIA to perform high or moderate complexity testing. This test has not been FDA cleared or approved. A negative result does not rule out the presence of PCR inhibitors in the specimen or target RNA in concentration below the limit of detection for the assay. If only one viral target is positive but coinfection with multiple targets is suspected, the sample should be re-tested with another FDA cleared, approved, or authorized test, if coinfection would change clinical management. This test was validated by the [facility]. These laboratories are certified under the Clinical Laboratory Improvement Amendments of 1988 (CLIA-88) as qualified to perform high complexity laboratory testing. Lobito Alvarez MD LAB - MICRO GENERAL ORDERABLES [facility] [address] [place] [address], [facility] [phone] * MR Brain w/o Contrast (08/01/2022 10:42 PM STRETCHER DRIER OPERATOR) Anatomical Region Laterality Modality Head, SUBRAD MR NEURO, UMP MR NEURO, RAD MR Magnetic Resonance 08/01/2022 10:4 2 PM STRETCHER DRIER OPERATOR Impressions 08/01/2022 11:13 PM STRETCHER DRIER OPERATOR IMPRESSION: 1. ??Motion degraded exam. 2. ??No definite acute intracranial pathology identified. 3. ??Age-related changes with a chronic lacunar infarct in the left basal ganglia. 4. ??Pansinusitis. Narrative 08/01/2022 11:13 PM STRETCHER DRIER OPERATOR EXAM: MR BRAIN W/O CONTRAST LOCATION: [facility] DATE/TIME: 08/01/2022 10:42 PM INDICATION: Symptoms concerning for transient global amnesia COMPARISON: Head CT on the same date TECHNIQUE: Routine multiplanar multisequence head MRI without intravenous contrast. FINDINGS: Motion degraded exam. INTRACRANIAL CONTENTS: No acute or subacute infarct. No mass, acute hemorrhage, or extra-axial fluid collections. Patchy nonspecific T2/FLAIR hyperintensities within the cerebral white matter most consistent with mild to moderate chronic microvascular ischemic change. Chronic lacunar infarct left basal ganglia. Mild generalized cerebral atrophy. No hydrocephalus. Normal position of the cerebellar tonsils. SELLA: No abnormality accounting for technique. OSSEOUS STRUCTURES/SOFT TISSUES: Normal marrow signal. The major intracranial vascular flow voids are maintained. ORBITS: No abnormality accounting for technique. SINUSES/MASTOIDS: Extensive opacification of the paranasal sinuses with air- fluid levels. Scattered fluid/membrane thickening in the mastoid air cells bilaterally. Procedure Note MayAlfonzo MD - 08/01/2022 EXAM: MR BRAIN W/O CONTRAST LOCATION: [facility] DATE/TIME: 08/01/2022 10:42 PM INDICATION: Symptoms concerning for transient global amnesia COMPARISON: Head CT on the same date TECHNIQUE: Routine multiplanar multisequence head MRI without intravenouscontrast. FINDINGS: Motion degraded exam. INTRACRANIAL CONTENTS: No acute or subacute infarct. No mass, acutehemorrhage, or extra-axial fluid collections. Patchy nonspecific T2/FLAIRhyperintensities within the cerebral white matter most consistent withmild to moderate chronic microvascular ischemic change. Chronic lacunar infarct left basal ganglia. Mildgeneralized cerebral atrophy. No hydrocephalus. Normal position of thecerebellar tonsils. SELLA: No abnormality accounting for technique. OSSEOUS STRUCTURES/SOFT TISSUES: Normal marrow signal. The majorintracranial vascular flow voids are maintained. ORBITS: No abnormality accounting for technique. SINUSES/MASTOIDS: Extensive opacification of the paranasal sinuses withair-fluid levels. Scattered fluid/membrane thickening in the mastoid aircells bilaterally. IMPRESSION: 1. Motion degraded exam. 2. No definite acute intracranial pathology identified. 3. Age-related changes with a chronic lacunar infarct in the left basalganglia. 4. Pansinusitis. John Salcido DO IMG MRI ORDERABLES * CT Abdomen Pelvis w Contrast (08/01/2022 7:55 PM STRETCHER DRIER OPERATOR) Anatomical Region Laterality Modality Abdomen/Pelvis, SUBRAD CT KINSEY DY, UMP CT ABDOMEN PELVIS, RAD CT Computed Tomography 08/01/2022 7:55 PM STRETCHER DRIER OPERATOR Impressions 08/01/2022 8:14 PM STRETCHER DRIER OPERATOR IMPRESSION: 1. ??Skin thickening and subcutaneous stranding in the anterior lower abdomen. Correlate clinically for cellulitis. No fluid collections. 2. ??Mild splenomegaly. 3. ??No other etiology identified to explain patient's abdominal pain. Narrative 08/01/2022 8:14 PM STRETCHER DRIER OPERATOR EXAM: CT ABDOMEN PELVIS W CONTRAST LOCATION: [facility] DATE/TIME: 08/01/2022 7:55 PM INDICATION: RLQ abdominal pain COMPARISON: None. TECHNIQUE: CT scan of the abdomen and pelvis was performed following injection of IV contrast. Multiplanar reformats were obtained. Dose reduction techniques were used. CONTRAST: Isovue 370 100mL FINDINGS: LOWER CHEST: Advanced coronary artery calcification. HEPATOBILIARY: Mild steatosis. Cholecystectomy without ductal dilatation. PANCREAS: Unremarkable SPLEEN: Mild splenomegaly reaching 13.8 cm. ADRENAL GLANDS: Unremarkable KIDNEYS/BLADDER: No hydronephrosis. Bladder is thick-walled but not well- distended. BOWEL: Normal caliber appendix. No bowel obstruction. LYMPH NODES: No significant retroperitoneal adenopathy VASCULATURE: No abdominal aortic aneurysm. Patent portal vein. PELVIC ORGANS: Prostatic hypertrophy. No free fluid. MUSCULOSKELETAL: Small fat-containing bilateral inguinal hernias. Skin thickening and subcutaneous stranding in the anterior lower abdomen. No fluid collections.No acute bony abnormalities. Moderate multilevel spondylosis, most advanced in the lower thoracic spine. Procedure Note Dhruv Terry MD - 08/01/2022 EXAM: CT ABDOMEN PELVIS W CONTRAST LOCATION: [facility] DATE/TIME: 08/01/2022 7:55 PM INDICATION: RLQ abdominal pain COMPARISON: None. TECHNIQUE: CT scan of the abdomen and pelvis was performed followinginjection of IV contrast. Multiplanar reformats were obtained. Dosereduction techniques were used. CONTRAST: Isovue 370 100mL FINDINGS: LOWER CHEST: Advanced coronary artery calcification. HEPATOBILIARY: Mild steatosis. Cholecystectomy without ductaldilatation. PANCREAS: Unremarkable SPLEEN: Mild splenomegaly reaching 13.8 cm. ADRENAL GLANDS: Unremarkable KIDNEYS/BLADDER: No hydronephrosis. Bladder is thick-walled but notwell- distended. BOWEL: Normal caliber appendix. No bowel obstruction. LYMPH NODES: No significant retroperitoneal adenopathy VASCULATURE: No abdominal aortic aneurysm. Patent portal vein. PELVIC ORGANS: Prostatic hypertrophy. No free fluid. MUSCULOSKELETAL: Small fat-containing bilateral inguinal hernias. Skinthickening and subcutaneous stranding in the anterior lower abdomen. Nofluid collections.No acute bony abnormalities. Moderate multilevelspondylosis, most advanced in the lower thoracic spine. IMPRESSION: 1. Skin thickening and subcutaneous stranding in the anterior lowerabdomen. Correlate clinically for cellulitis. No fluid collections. 2. Mild splenomegaly. 3. No other etiology identified to explain patient's abdominal pain. John Salcido DO IMG CT ORDERABLES * CT Chest Pulmonary Embolism w Contrast (08/01/2022 7:49 PM STRETCHER DRIER OPERATOR) Anatomical Region Laterality Modality Chest, SUBRAD CT BODY, UMP CT CHEST Computed Tomography 08/01/2022 7:49 PM STRETCHER DRIER OPERATOR Impressions 08/01/2022 8:26 PM STRETCHER DRIER OPERATOR IMPRESSION: 1. ??No pulmonary embolism. 2. ??Diffuse bronchial wall thickening, suggesting bronchitis. 3. ??No consolidations or pleural effusions. 4. ??Two small groundglass nodules in the left upper lobe measuring up to 7 mm, possibly inflammatory. Follow-up guidelines below. 5. ??Severe coronary arterial calcifications. 6. ??Incidental 1.9 cm right thyroid nodule. Consider further evaluation with a dedicated thyroid ultrasound on a nonemergent basis, if not previously performed. REFERENCE: Guidelines for Management of Incidental Pulmonary Nodules Detected on CT Images: From the Fleischner Society 2017. Guidelines apply to incidental nodules in patients who are 35 years or older. Guidelines do not apply to lung cancer screening, patients with immunosuppression, or patients with known primary cancer. SUBSOLID NODULES Multiple CT at 3-6 months. If stable, consider CT at 2 and 4 years. Narrative 08/01/2022 8:26 PM STRETCHER DRIER OPERATOR EXAM: CT CHEST PULMONARY EMBOLISM W CONTRAST LOCATION: [facility] DATE/TIME: 08/01/2022 7:49 PM INDICATION: Dyspnea. Concern for pulmonary embolism. COMPARISON: None. TECHNIQUE: CT chest pulmonary angiogram during arterial phase injection of IV contrast. Multiplanar reformats and MIP reconstructions were performed. Dose reduction techniques were used. CONTRAST: Isovue 370 100mL FINDINGS: ANGIOGRAM CHEST: Pulmonary arteries are normal caliber and negative for pulmonary emboli. Thoracic aorta is negative for dissection. No CT evidence of right heart strain. LUNGS AND PLEURA: Diffuse bronchial wall thickening, suggesting bronchitis. No consolidations or pleural effusions. Two subpleural groundglass nodules measuring 7 mm in left upper lobe (4/#80) and 7 mm within the lingula (4/#159). MEDIASTINUM/AXILLAE: No normal cardiac size. No pericardial effusion. Hypodense 1.9 cm right thyroid nodule (3/#30). No enlarged thoracic lymph node. CORONARY ARTERY CALCIFICATION: Severe. UPPER ABDOMEN: Status post cholecystectomy. No biliary ductal dilation. MUSCULOSKELETAL: Multilevel degenerative changes of the spine. No acute bony abnormality. Procedure Note Junaid Lakhani MD - 08/01/2022 EXAM: CT CHEST PULMONARY EMBOLISM W CONTRAST LOCATION: [facility] DATE/TIME: 08/01/2022 7:49 PM INDICATION: Dyspnea. Concern for pulmonary embolism. COMPARISON: None. TECHNIQUE: CT chest pulmonary angiogram during arterial phase injection ofIV contrast. Multiplanar reformats and MIP reconstructions were performed.Dose reduction techniques were used. CONTRAST: Isovue 370 100mL FINDINGS: ANGIOGRAM CHEST: Pulmonary arteries are normal caliber and negative forpulmonary emboli. Thoracic aorta is negative for dissection. No CTevidence of right heart strain. LUNGS AND PLEURA: Diffuse bronchial wall thickening, suggestingbronchitis. No consolidations or pleural effusions. Two subpleuralgroundglass nodules measuring 7 mm in left upper lobe (4/#80) and 7 mmwithin the lingula (4/#159). MEDIASTINUM/AXILLAE: No normal cardiac size. No pericardial effusion.Hypodense 1.9 cm right thyroid nodule (3/#30). No enlarged thoracic lymphnode. CORONARY ARTERY CALCIFICATION: Severe. UPPER ABDOMEN: Status post cholecystectomy. No biliary ductal dilation. MUSCULOSKELETAL: Multilevel degenerative changes of the spine. No acutebony abnormality. IMPRESSION: 1. No pulmonary embolism. 2. Diffuse bronchial wall thickening, suggesting bronchitis. 3. No consolidations or pleural effusions. 4. Two small groundglass nodules in the left upper lobe measuring up to 7mm, possibly inflammatory. Follow-up guidelines below. 5. Severe coronary arterial calcifications. 6. Incidental 1.9 cm right thyroid nodule. Consider further evaluationwith a dedicated thyroid ultrasound on a nonemergent basis, if notpreviously performed. REFERENCE: Guidelines for Management of Incidental Pulmonary Nodules Detected on CTImages: From the Fleischner Society 2017. Guidelines apply to incidental nodules in patients who are 35 years orolder. Guidelines do not apply to lung cancer screening, patients withimmunosuppression, or patients with known primary cancer. SUBSOLID NODULES Multiple CT at 3-6 months. If stable, consider CT at 2 and 4 years. John Salcido DO [facility] [place] ORDERABLES * Extra Purple Top Tube (08/01/2022 7:41 PM STRETCHER DRIER OPERATOR) Hold Specimen [facility] 08/01/2022 9:02 PM STRETCHER DRIER OPERATOR [facility] Blood VENOUS LINE / Unknown Venipuncture / Unknown 08/01/2022 7:41 PM STRETCHER DRIER OPERATOR 08/01/2022 7:47 PM STRETCHER DRIER OPERATOR John Salcido DO LAB - BLOOD ORDERA BLES Performing Organization Address City/[facility]/ZIP Co de Phone Number [facility] [address] [place] [address], [facility] [phone] * Extra Green Top ([facility]ins Heparin) Tube (08/01/2022 7:41 PM STRETCHER DRIER OPERATOR) Hold Specimen [facility] 08/01/2022 9:02 PM STRETCHER DRIER OPERATOR [facility] Blood VENOUS LINE / Unknown Venipuncture / Unknown 08/01/2022 7:41 PM STRETCHER DRIER OPERATOR 08/01/2022 7:47 PM STRETCHER DRIER OPERATOR John Salcido DO LAB - BLOOD ORDERA BLES [facility] [address] [place] [address], [facility] [phone] * Extra Red Top Tube (08/01/2022 7:41 PM STRETCHER DRIER OPERATOR) Hold Specimen [facility] 08/01/2022 9:02 PM STRETCHER DRIER OPERATOR [facility] Blood VENOUS LINE / Unknown Venipuncture / Unknown 08/01/2022 7:41 PM STRETCHER DRIER OPERATOR 08/01/2022 7:47 PM STRETCHER DRIER OPERATOR Jonh Salcido DO LAB - BLOOD ORDERA BLES Performing Organization Address [facility] Co de Phone Number [facility] [address] [place] [address], [facility] [phone] * (ABNORMAL) Creatinine POCT (08/01/2022 7:20 PM STRETCHER DRIER OPERATOR) [facility] Creatinine POCT 2.3(H) 0.7 - 1.3 mg/dL 08/01/2022 7:23 PM [facility] POCT RESULTS GFR, ESTIMATED POCT 30(L) >60 mL/min/1.7 3m2 08/01/2022 7:23 PM [facility] POCT RESULTS Blood BLOOD SPECIMEN / Unknown 08/01/2022 7:20 PM STRETCHER DRIER OPERATOR 08/01/2022 7:23 PM STRETCHER DRIER OPERATOR John Salcido DO LAB - BEAKER POCT Performing Organization Address [facility] Co de Phone Number [facility] POCT RESULTS [address] [place] [address] * Head CT w/o contrast (08/01/2022 7:19 PM STRETCHER DRIER OPERATOR) Anatomical Region Laterality Modality Head, SUBRAD CT NEURO, SUBRA D CT NEURO, UMP CT NEURO, RAD CT Computed Tomography 08/01/2022 7:19 PM STRETCHER DRIER OPERATOR Impressions 08/01/2022 7:44 PM STRETCHER DRIER OPERATOR IMPRESSION: 1. ??No acute intracranial hemorrhage, mass, or herniation. 2. ??Mild nonspecific white matter changes most likely due to chronic microvascular ischemic disease. 3. ??Marked opacification of the paranasal sinuses with air-fluid layers in the maxillary sinuses. This could represent acute sinusitis in the appropriate clinical setting. Narrative 08/01/2022 7:44 PM STRETCHER DRIER OPERATOR EXAM: CT HEAD W/O CONTRAST LOCATION: [facility] DATE/TIME: 08/01/2022 7:19 PM INDICATION: AMS COMPARISON: None. TECHNIQUE: Routine CT Head without IV contrast. Multiplanar reformats. Dose reduction techniques were used. FINDINGS: INTRACRANIAL CONTENTS: No intracranial hemorrhage, extraaxial collection, or mass effect. ??No CT evidence of acute infarct. Mild presumed chronic small vessel ischemic changes. Normal ventricles and sulci. VISUALIZED ORBITS/SINUSES/MASTOIDS: No intraorbital abnormality. Marked opacification of the paranasal sinuses. There are air-fluid layers in the maxillary sinuses. No middle ear or mastoid effusion. BONES/SOFT TISSUES: No acute abnormality. Procedure Note Moises Hunter MD - 08/01/2022 EXAM: CT HEAD W/O CONTRAST LOCATION: [facility] DATE/TIME: 08/01/2022 7:19 PM INDICATION: AMS COMPARISON: None. TECHNIQUE: Routine CT Head without IV contrast. Multiplanar reformats.Dose reduction techniques were used. FINDINGS: INTRACRANIAL CONTENTS: No intracranial hemorrhage, extraaxial collection,or mass effect. No CT evidence of acute infarct. Mild presumed chronicsmall vessel ischemic changes. Normal ventricles and sulci. VISUALIZED ORBITS/SINUSES/MASTOIDS: No intraorbital abnormality. Markedopacification of the paranasal sinuses. There are air-fluid layers in themaxillary sinuses. No middle ear or mastoid effusion. BONES/SOFT TISSUES: No acute abnormality. IMPRESSION: 1. No acute intracranial hemorrhage, mass, or herniation. 2. Mild nonspecific white matter changes most likely due to chronicmicrovascular ischemic disease. 3. Marked opacification of the paranasal sinuses with air-fluid layers inthe maxillary sinuses. This could represent acute sinusitis in theappropriate clinical setting. John Salcido DO G CT ORDERABLES * (ABNORMAL) Manual Differential (08/01/2022 6:40 PM STRETCHER DRIER OPERATOR) Pathologist [facility] [place] % Neutrophils 64 % 08/01/2022 8:30 PM [facility] % Lymphocytes 22 % 08/01/2022 8:30 PM [facility] % Monocytes 11 % 08/01/2022 8:30 PM [facility] % Eosinophils 2 % 08/01/2022 8:30 PM [facility] % Basophils 0 % 08/01/2022 8:30 PM [facility] % Metamyelocytes 1 % 08/01/19 8:30 PM [facility] Absolute Neutrophils 5.4 1.6 - 8.3 10e3/uL 08/01/2022 8:30 PM [facility] Absolute Lymphocytes 1.8 0.8 - 5.3 10e3/uL 08/01/2022 8:30 PM [facility] Absolute Monocytes 0.9 0.0 - 1.3 10e3/uL 08/01/2022 8:30 PM [facility] Absolute Eosinophils 0.2 0.0 - 0.7 10e3/uL 08/01/2022 8:30 PM [facility] Absolute Basophils 0.0 0.0 - 0.2 10e3/uL 08/01/2022 8:30 PM [facility] Absolute Metamyelocytes 0.1(H) <=0.0 10e3/uL 08/01/2022 8:30 PM [facility] RBC Morphology Confirmed RBC Indices 08/01/2022 8:30 PM [facility] Platelet Assessment Automated Count Confirmed. Platelet morphology is normal. Automated Count Confirmed. Platelet morphology is normal. 08/01/2022 8:30 PM [facility] Blood STRUCTURE OF LEFT UPPER LIMB / Unknown Venipuncture / Unknown 08/01/2022 6:40 PM STRETCHER DRIER OPERATOR 08/01/2022 6:47 PM STRETCHER DRIER OPERATOR John Salcido DO LAB - BLOOD ORDERA BLES [facility] [address] [place] [address], [facility] [phone] * (ABNORMAL) CBC with platelets and differential (08/01/2022 6:40 PM STRETCHER DRIER OPERATOR) [facility] WBC Count 8.4 4.0 - 11.0 10e3/uL 08/01/2022 8:29 PM [facility] RBC Count 3.73(L) 4.40 - 5.90 10e6/uL 08/01/2022 8:29 PM [facility] Hemoglobin 12.0(L) 13.3 - 17.7 g/dL 08/01/2022 8:29 PM [facility] Hematocrit 34.5(L) 40.0 - 53.0 % 08/01/2022 8:29 PM [facility] MCV 93 78 - 100 fL 08/01/2022 8:29 PM [facility] MCH 32.2 26.5 - 33.0 pg 08/01/2022 8:29 PM [facility] MCHC 34.8 31.5 - 36.5 g/dL 08/01/2022 8:29 PM [facility] RDW 14.5 10.0 - 15.0 % 08/01/2022 8:29 PM [facility] Platelet Count 311 150 - 450 10e3/uL 08/01/2022 8:29 PM [facility] Blood STRUCTURE OF LEFT UPPER LIMB / Unknown Venipuncture / Unknown 08/01/2022 6:40 PM STRETCHER DRIER OPERATOR 08/01/2022 6:47 PM STRETCHER DRIER OPERATOR John Salcido DO LAB - BLOOD ORDERA BLES Performing Organization Address City/[facility]/ZIP Co de Phone Number [facility] [address] [place], [place] [address] [phone] * Troponin I (now) (08/01/2022 6:40 PM STRETCHER DRIER OPERATOR) [facility] Troponin I 0.03 0.00 - 0.29 ng/mL 08/01/2022 7:56 PM STRETCHER DRIER OPERATOR [facility] Blood STRUCTURE OF LEFT UPPER LIMB / Unknown Venipuncture / Unknown 08/01/2022 6:40 PM STRETCHER DRIER OPERATOR 08/01/2022 6:47 PM STRETCHER DRIER OPERATOR John Salcido DO LAB - BLOOD ORDERA BLES [facility] [address] [place] [address], [facility] [phone] * (ABNORMAL) Basic metabolic panel (08/01/2022 6:40 PM STRETCHER DRIER OPERATOR) Sodium 134(L) 136 - 145 mmol/L 08/01/2022 7:48 PM [facility] Potassium 4.7 3.5 - 5.0 mmol/L 08/01/2022 7:48 PM [facility] Chloride 103 98 - 107 mmol/L 08/01/2022 7:48 PM [facility] Carbon Dioxide (CO2) 19(L) 22 - 31 mmol/L 08/01/2022 7:48 PM [facility] Anion Gap 12 5 - 18 mmol/L 08/01/2022 7:48 PM [facility] Urea Nitrogen 37(H) 8 - 22 mg/dL 08/01/2022 7:48 PM [facility] Creatinine 2.12(H) 0.70 - 1.30 mg/dL 08/01/2022 7:48 PM [facility] Calcium 9.8 8.5 - 10.5 mg/dL 08/01/2022 7:48 PM [facility] Glucose 63(L) 70 - 125 mg/dL 08/01/2022 7:48 PM [facility] GFR Estimate 33(L) >60 mL/min/1.7 3m2 08/01/2022 7:48 PM [facility] Comment:eGFR calculated usin 2020 CKD-EPI equation. Blood STRUCTURE OF LEFT UPPER LIMB / Unknown Venipuncture / Unknown 08/01/2022 6:40 PM STRETCHER DRIER OPERATOR 08/01/2022 6:47 PM STRETCHER DRIER OPERATOR John Salcido DO LAB - BLOOD ORDERA BLES [facility] [address] [place] [address], [facility] [phone] * Extra Purple Top Tube (08/01/2022 6:40 PM STRETCHER DRIER OPERATOR) Hold Specimen JIC 08/01/2022 8:03 PM STRETCHER DRIER OPERATOR [facility] Blood STRUCTURE OF LEFT UPPER LIMB / Unknown Venipuncture / Unknown 08/01/2022 6:40 PM STRETCHER DRIER OPERATOR 08/01/2022 6:47 PM STRETCHER DRIER OPERATOR Tad Stoddard MD LAB - BLOOD ORDERAB LES [facility] [address] [place] [address], [facility] [phone] * Extra Green Top (Wiggins Heparin) Tube (08/01/2022 6:40 PM STRETCHER DRIER OPERATOR) Hold Specimen [facility] 08/01/2022 8:03 PM STRETCHER DRIER OPERATOR [facility] Blood STRUCTURE OF LEFT UPPER LIMB / Unknown Venipuncture / Unknown 08/01/2022 6:40 PM STRETCHER DRIER OPERATOR 08/01/2022 6:47 PM STRETCHER DRIER OPERATOR Tad Stoddard MD LAB - BLOOD ORDERAB LES Performing Organization Address City/[facility]/ZIP Co de Phone Number [facility] [address] [place] [address], [facility] [phone] * Extra Red Top Tube (08/01/2022 6:40 PM STRETCHER DRIER OPERATOR) Hold Specimen [facility] 08/01/2022 8:03 PM STRETCHER DRIER OPERATOR [facility] Blood STRUCTURE OF LEFT UPPER LIMB / Unknown Venipuncture / Unknown 08/01/2022 6:40 PM STRETCHER DRIER OPERATOR 08/01/2022 6:47 PM STRETCHER DRIER OPERATOR Tad Stoddard MD LAB - BLOOD ORDERAB LES [facility] [address] [place] [address], [facility] [phone] * Extra Blue Top Tube (08/01/2022 6:40 PM STRETCHER DRIER OPERATOR) Hold Specimen [facility] 08/01/2022 8:03 PM STRETCHER DRIER OPERATOR [facility] Blood STRUCTURE OF LEFT UPPER LIMB / Unknown Venipuncture / Unknown 08/01/2022 6:40 PM STRETCHER DRIER OPERATOR 08/01/2022 6:47 PM STRETCHER DRIER OPERATOR Tad Stoddard MD LAB - BLOOD ORDERAB LES [facility] [address] [place] [address], [facility] [phone] * ECG 12-LEAD WITH MUSE (LHE) (08/01/2022 6:15 PM STRETCHER DRIER OPERATOR) Systolic Blood Pressure mmHg RADIOLOGY RESULTS Diastolic Blood Pressure mmHg RADIOLOGY RESULTS Ventricular Rate 82 BPM RAD IOLOGY RESULTS Atrial Rate 82 BPM RADIOLOG Y RESULTS MI Interval 166 ms RADIOLOG Y RESULTS QRS Duration 90 ms RADIOLO GY RESULTS QT 374 ms RADIOLOGY RESULTS QTc 436 ms RADIOLOGY RESULTS P [place] 58 degrees RADIOLOGY RESULTS R AXIS -10 degrees RADIOLOGY RESULTS T [place] 45 degrees RADIOLOGY RESULTS Interpretation ECG Sinus rhythm Minimal voltage criteria for LVH, may be normal variant Borderline ECG No previous ECGs available Confirmed by SEE ED PROVIDER NOTE FOR, ECG INTERPRETATION (4000), editor news MODESTA ABDULLAHI ([id number]) on 08/01/2022 7:19:50 PM RADIOLOGY RESULTS 08/01/2022 6:15 PM STRETCHER DRIER OPERATOR 08/01/2022 7:19 PM STRETCHER DRIER OPERATOR John Salcido DO ECG ORDERABLES Performing Organization Address City/[facility]/ZIP Co de Phone Number RADIOLOGY RESULTS * Glucose by meter (08/01/2022 6:09 PM STRETCHER DRIER OPERATOR) GLUCOSE BY METER POCT 70 70 - 99 mg/dL 08/01/2022 6:16 PM STRETCHER DRIER OPERATOR [facility] POCT RESULTS Blood, Capillary BLOOD SPECIMEN / Unknown 08/01/2022 6:09 PM STRETCHER DRIER OPERATOR 08/01/2022 6:16 PM STRETCHER DRIER OPERATOR Provider Unknown LAB - BEAKER POCT Performing Organization Address City/[facility]/ZIP Co de Phone Number [facility] POCT RESULTS [address] [place] [address] documented in this encounter Visit Diagnoses Diagnosis Bronchitis Bronchitis, not specified as acute or chronic Memory difficulty Memory loss Infection due to 2019 novel coronavirus documented in this encounter Administered Medications Inactive Administered Medications - up to 3 most recent administrations Medication Order MAR Action Action Date Dose Rate Site 0.9% sodium chloride BOLUS Intravenous, 500 mL, ONCE, On Sun08/01/22 at 1999, For 1 dose $New Bag 08/01/2022 7:50 PM STRETCHER DRIER OPERATOR 500 mLs iopamidol (ISOVUE-370) solution 100 mL 100 mL, Intravenous, ONCE, On Sun08/01/22 at 1930, For 1 dose $Given 08/01/2022 7:36 PM STRETCHER DRIER OPERATOR 100 mLs ipratropium - albuterol 0.5 mg/2.5 mg/3 mL (DUONEB) neb solution 3 mL 3 mL, Nebulization, ONCE, On Sun08/01/22 at 1999, For 1 dose $Given 08/01/2022 8:02 PM STRETCHER DRIER OPERATOR 3 mLs LORazepam (ATIVAN) injection 0.5 mg 0.5 mg, Intravenous, ONCE, On Sun08/01/22 at 2230, For 1 dose, This drug may cause significant respiratory depression. Monitor respiratory status and vital signs carefully for 1 hour after each dose. $Given 08/01/2022 10:16 PM STRETCHER DRIER OPERATOR 0.5 mg documented in this encounter Active and Recently Administered Medications Times are shown in STRETCHER DRIER OPERATOR. Scheduled Medication Order 07/31/2022 08/01/2022 08/02/2022 0.9% sodium chloride BOLUS (COMPLETED) Intravenous, 500 mL, ONCE, On Sun08/01/22 at 1999, For 1 dose 1949 ($New Bag - Provider: Hayden Gordon RN)2117 (Stopped - Provider: Hayden Gordon RN) iopamidol (ISOVUE-370) solution 100 mL (COMPLETED) 100 mL, Intravenous, ONCE, On Sun08/01/22 at 1930, For 1 dose 1935 ($Given - Provider: CARMEN Tapia) ipratropium - albuterol 0.5 mg/2.5 mg/3 mL (DUONEB) neb solution 3 mL (COMPLETED) 3 mL, Nebulization, ONCE, On Sun08/01/22 at 1999, For 1 dose 2001 ($Given - Provider: Radha Kruger, RT) LORazepam (ATIVAN) injection 0.5 mg (COMPLETED) 0.5 mg, Intravenous, ONCE, On Sun08/01/22 at 2230, For 1 dose, This drug may cause significant respiratory depression. Monitor respiratory status and vital signs carefully for 1 hour after each dose. 2216 ($Given - Provider: Kiesha Gordon RN) documented in this encounter Additional Health Concerns Infection Onset Date Last Indicated Resolved Time Rule Out COVID-08/01/2022 08/01/2022 08/02/2022 12:25 AM STRETCHER DRIER OPERATOR COVID-08/01/2022 08/01/2022 08/22/2022 11:4 1 PM STRETCHER DRIER OPERATOR documented as of this encounter Care Teams Senior Industrial Engineer Relationship Specialty Start Date End Date Jessie England PA-C [facility] [address] [place] [address] PCP - General Physician Gis Analyst Developer 08/01/22 documented as of this encounter
== END 2023-07-25 10:13 | disposition home or self-care (01) ==
PROVIDERS: PCP Physician Assistant Medical; Visit Provider Physician Assistant Medical
DX: E53.8 Deficiency of other specified B group vitamins (principal); Z79.899 Other long term (current) drug therapy; E11.9 Type 2 diabetes mellitus without complications; Z79.4 Long term (current) use of insulin; Z79.84 Long term (current) use of oral hypoglycemic drugs
CPT/HCPCS: 82043; 82306; 82570; 82607; 82746; 84425

== ENCOUNTER 2023-11-14 08:45 | Outpatient (RCR) | payer MEDICARE, SELFPAY ==
[2023-08-07 13:15] LABS: Basophils Percent Auto 4.5 % (0.0-3.0); Eosinophils Percent Auto 4.2 % (0.0-7.0); Hemoglobin* 12.7 gm/dL (13.5-17.5); Immature Granulocytes Pct Auto 0.2 %; Lymphocytes Percent Auto 17.6 % (20-44); Mean Corpuscular HGB Conc 33 gm/dL (32-36); Mean Corpuscular Hemoglobin 32 pg (26-34); Mean Corpuscular Volume 97 fL (80-100); Monocytes Percent Auto 7.9 % (0.0-11.0); Neutrophils Percent Auto 65.6 % (42.0-72.0); Platelet Count* 244 K/uL (140-440); RDW Coefficient of Variation % 12.5 % (11.5-15.5); Red Blood Count 3.92 m/uL (4.30-5.90); White Blood Count* 4.03 K/uL (4.50-11.00)
[2023-08-07 13:29] LABS: Albumin* 4.7 g/dL (3.3-5.0); Chloride* 103 mmol/L (96-114); Potassium* 3.9 mmol/L (3.6-5.1); Sodium* 135 mmol/L (135-149)
[2023-08-07 13:31] LABS: Creatinine* 1.2 mg/dL (0.5-1.5); Estimated Glomerular Filt Rate 65 ml/min
[2023-08-07 13:32] LABS: Alanine Aminotransferase* 16 U/L (4-50); Alkaline Phosphatase* 61 U/L (40-150); Anion Gap 10 mEq/L (7-15); Aspartate Amino Transferase* 23 U/L (12-35); Bilirubin Total* 0.7 mg/dL (0.1-1.5); Blood Urea Nitrogen* 14 mg/dL (7-30); Carbon Dioxide* 22 mmol/L (20-32); Glucose* 203 mg/dL (60-115); Lactate Dehydrogenase* 164 U/L (120-246); Total Protein* 7.7 g/dL (6.0-8.3)
[2023-08-07 13:33] LABS: Calcium* 9.5 mg/dL (8.4-10.6)
[2023-08-07 13:37] LABS: Slide Review Reflex Yes
[2023-08-07 13:38] LABS: Slide Review Acceptable Review (Acceptable)
--- NOTE | 2023-08-10 13:13 | ONC.NURNOTE ---
New medication check-in started Bosutinib on 08/08 reports stomach unsettled patient has topped omeprazole on our recommendation due to interaction with bosutinib paient picked up pepcid RX but has not started will start today reminded to take at least 2 hors after bosutinib will continue to follow up next week
[2023-08-10 22:38] LABS: QuantBCR-ABL Major p210 Result Detected; QuantBCR-ABL Major p210 Source Whole Blood
--- NOTE | 2023-08-13 16:13 | ONC.NURNOTE ---
patient called earlier today and left message fha underwriter phoned back earlier today and left message on VM to follow up on toleration of new start Bosutinib and to address questions today about Ginko and Bosutinib
--- NOTE | 2023-08-15 13:59 | ONC.NURNOTE ---
New bosutinib start medication tolerance check in: reports no adverse side effects- started with 200mg ([id number]) daily for a week, today he increased to 3 X 100mg tabs due for 2 week lab and [place] follow up next week- appt moved to Sunday per patient request as he has a conflict on Sunday understands to continue on 3 X 100 mg for 7 days, next increase due on 08/12/23 to full dose 400 mg patient also notes lisinopril was d/c'ed by PCP to address cough- patient thinks his cough is getting better
[2023-08-20 10:06] LABS: Eosinophils Absolute Auto 0.14 K/uL (0.00-0.50); Eosinophils Percent Auto 2.9 % (0.0-7.0); Hematocrit 38.5 % (37.0-53.0); Immature Granulocytes Abs Auto 0.03 K/uL (0.00-0.30); Immature Granulocytes Pct Auto 0.6 %; Lymphocytes Percent Auto 14.4 % (20-44); Mean Corpuscular HGB Conc 34 gm/dL (32-36); Mean Corpuscular Hemoglobin 33 pg (26-34); Mean Corpuscular Volume 97 fL (80-100); Monocytes Percent Auto 8.2 % (0.0-11.0); Neutrophils Absolute Auto 3.34 K/uL (1.7-7.0); Neutrophils Percent Auto 69.9 % (42.0-72.0); RDW Coefficient of Variation % 12.7 % (11.5-15.5); Red Blood Count 3.97 m/uL (4.30-5.90); White Blood Count* 4.78 K/uL (4.50-11.00)
[2023-08-20 10:14] LABS: Slide Review Reflex Yes
[2023-08-20 10:30] LABS: Albumin* 4.5 g/dL (3.3-5.0); Chloride* 102 mmol/L (96-114); Potassium* 3.8 mmol/L (3.6-5.1); Sodium* 136 mmol/L (135-149)
[2023-08-20 10:32] LABS: Creatinine* 1.2 mg/dL (0.5-1.5); Estimated Glomerular Filt Rate 65 ml/min
[2023-08-20 10:33] LABS: Alanine Aminotransferase* 17 U/L (4-50); Alkaline Phosphatase* 89 U/L (40-150); Anion Gap 12 mEq/L (7-15); Aspartate Amino Transferase* 20 U/L (12-35); Bilirubin Total* 0.7 mg/dL (0.1-1.5); Blood Urea Nitrogen* 15 mg/dL (7-30); Calcium* 9.6 mg/dL (8.4-10.6); Carbon Dioxide* 22 mmol/L (20-32); Glucose* 251 mg/dL (60-115); Total Protein* 7.9 g/dL (6.0-8.3)
[2023-08-20 11:42] LABS: Platelet Count* 196 K/uL (140-440)
[2023-08-20 14:40] LABS: Slide Review Acceptable Review (Acceptable)
[2023-09-03 08:04] LABS: Basophils Absolute Auto 0.13 K/uL (0.00-0.30); Basophils Percent Auto 2.7 % (0.0-3.0); Eosinophils Absolute Auto 0.19 K/uL (0.00-0.50); Hemoglobin* 12.6 gm/dL (13.5-17.5); Immature Granulocytes Abs Auto 0.03 K/uL (0.00-0.30); Immature Granulocytes Pct Auto 0.6 %; Lymphocytes Percent Auto 17.3 % (20-44); Mean Corpuscular HGB Conc 34 gm/dL (32-36); Mean Corpuscular Hemoglobin 32 pg (26-34); Mean Corpuscular Volume 95 fL (80-100); Monocytes Percent Auto 9.9 % (0.0-11.0); Neutrophils Percent Auto 65.5 % (42.0-72.0); Platelet Count* 223 K/uL (140-440); RDW Coefficient of Variation % 12.8 % (11.5-15.5); White Blood Count* 4.74 K/uL (4.50-11.00)
[2023-09-03 08:30] LABS: Slide Review Reflex Yes
[2023-09-03 08:33] LABS: Albumin* 4.4 g/dL (3.3-5.0); Chloride* 103 mmol/L (96-114); Potassium* 3.9 mmol/L (3.6-5.1); Sodium* 136 mmol/L (135-149)
[2023-09-03 08:35] LABS: Anion Gap 6 mEq/L (7-15); Bilirubin Total* 0.6 mg/dL (0.1-1.5); Carbon Dioxide* 27 mmol/L (20-32); Creatinine* 1.3 mg/dL (0.5-1.5); Estimated Glomerular Filt Rate 59 ml/min
[2023-09-03 08:36] LABS: Alanine Aminotransferase* 15 U/L (4-50); Alkaline Phosphatase* 91 U/L (40-150); Aspartate Amino Transferase* 18 U/L (12-35); Blood Urea Nitrogen* 15 mg/dL (7-30); Glucose* 286 mg/dL (60-115); Total Protein* 7.6 g/dL (6.0-8.3)
[2023-09-03 08:37] LABS: Calcium* 9.7 mg/dL (8.4-10.6)
[2023-09-03 08:52] LABS: Slide Review Acceptable Review (Acceptable)
--- NOTE | 2023-09-03 11:56 | ONC.NURNOTE ---
lab results reviewed by filing writer and called to patient-noted as stable- blood sugar noted and being monitored by PCP patient reports intermittent reflux- depending on diet at home- does not take any meds for reflux reports no other concerns with bosutinib taking 400 mg/day next appts reviewed
[2023-09-18 09:31] LABS: Basophils Absolute Auto 0.12 K/uL (0.00-0.30); Basophils Percent Auto 2.3 % (0.0-3.0); Eosinophils Absolute Auto 0.26 K/uL (0.00-0.50); Eosinophils Percent Auto 4.9 % (0.0-7.0); Hematocrit 37.9 % (37.0-53.0); Hemoglobin* 12.8 gm/dL (13.5-17.5); Immature Granulocytes Abs Auto 0.03 K/uL (0.00-0.30); Immature Granulocytes Pct Auto 0.6 %; Lymphocytes Percent Auto 15.8 % (20-44); Mean Corpuscular HGB Conc 34 gm/dL (32-36); Mean Corpuscular Hemoglobin 32 pg (26-34); Mean Corpuscular Volume 95 fL (80-100); Monocytes Percent Auto 8.1 % (0.0-11.0); Neutrophils Absolute Auto 3.64 K/uL (1.7-7.0); Neutrophils Percent Auto 68.3 % (42.0-72.0); Platelet Count* 222 K/uL (140-440); RDW Coefficient of Variation % 13.1 % (11.5-15.5); Red Blood Count 3.98 m/uL (4.30-5.90); White Blood Count* 5.32 K/uL (4.50-11.00)
[2023-09-18 09:37] LABS: Slide Review Reflex No
[2023-09-18 10:02] LABS: Albumin* 4.5 g/dL (3.3-5.0); Chloride* 101 mmol/L (96-114)
[2023-09-18 10:03] LABS: Potassium* 4.5 mmol/L (3.6-5.1); Sodium* 135 mmol/L (135-149)
[2023-09-18 10:04] LABS: Creatinine* 1.5 mg/dL (0.5-1.5); Estimated Glomerular Filt Rate 49 ml/min
[2023-09-18 10:05] LABS: Alanine Aminotransferase* 15 U/L (4-50); Alkaline Phosphatase* 79 U/L (40-150); Anion Gap 9 mEq/L (7-15); Aspartate Amino Transferase* 17 U/L (12-35); Bilirubin Total* 0.6 mg/dL (0.1-1.5); Blood Urea Nitrogen* 16 mg/dL (7-30); Calcium* 9.8 mg/dL (8.4-10.6); Carbon Dioxide* 25 mmol/L (20-32); Glucose* 295 mg/dL (60-115); Total Protein* 7.8 g/dL (6.0-8.3)
--- NOTE | 2023-11-05 10:28 | ONC.NURNOTE ---
Received refill request for Famotidine; contacted pt to see if needed. Pt verbalizes he no longer takes it. Faxed to pt's pharmacy to take off auto-refill as pt no longer taking.
[2023-11-07 09:42] LABS: Basophils Absolute Auto 0.13 K/uL (0.00-0.30); Basophils Percent Auto 2.6 % (0.0-3.0); Eosinophils Absolute Auto 0.17 K/uL (0.00-0.50); Eosinophils Percent Auto 3.4 % (0.0-7.0); Hematocrit 37.7 % (37.0-53.0); Hemoglobin* 12.8 gm/dL (13.5-17.5); Immature Granulocytes Abs Auto 0.06 K/uL (0.00-0.30); Immature Granulocytes Pct Auto 1.2 %; Lymphocytes Percent Auto 15.3 % (20-44); Mean Corpuscular HGB Conc 34 gm/dL (32-36); Mean Corpuscular Hemoglobin 32 pg (26-34); Mean Corpuscular Volume 94 fL (80-100); Monocytes Percent Auto 10.7 % (0.0-11.0); Neutrophils Absolute Auto 3.37 K/uL (1.7-7.0); Neutrophils Percent Auto 66.8 % (42.0-72.0); Platelet Count* 239 K/uL (140-440); Red Blood Count 4.03 m/uL (4.30-5.90); White Blood Count* 5.04 K/uL (4.50-11.00)
[2023-11-07 09:47] LABS: Slide Review Reflex No
[2023-11-07 10:04] LABS: Chloride* 105 mmol/L (96-114)
[2023-11-07 10:05] LABS: Albumin* 4.5 g/dL (3.3-5.0); Sodium* 137 mmol/L (135-149)
[2023-11-07 10:07] LABS: Bilirubin Total* 0.8 mg/dL (0.1-1.5); Creatinine* 1.3 mg/dL (0.5-1.5); Estimated Glomerular Filt Rate 59 ml/min
[2023-11-07 10:08] LABS: Alanine Aminotransferase* 14 U/L (4-50); Alkaline Phosphatase* 73 U/L (40-150); Anion Gap 8 mEq/L (7-15); Aspartate Amino Transferase* 18 U/L (12-35); Blood Urea Nitrogen* 15 mg/dL (7-30); Calcium* 8.6 mg/dL (8.4-10.6); Carbon Dioxide* 24 mmol/L (20-32); Glucose* 193 mg/dL (60-115); Total Protein* 7.8 g/dL (6.0-8.3)
--- NOTE | 2023-11-07 10:52 | ONC.NURNOTE ---
CBC CMP reviewed by director underwriter sales and called to patient/ as stable with in patients norm RTC in 2 weeks with BCR/ABL results
--- NOTE | 2023-11-07 10:53 | ONC.NURNOTE ---
Patient is moving back to [place] early November we will provide a copy of all his records from [facility] at his October appt with Dr Mara del rosario in law is a PA in [place] near [place]- they will ask her about local Oncology/Field Technician we will call with a referral when they give us a name of a provider- this script writer requested that they call in the next week with a provider name
[2023-11-12 18:44] LABS: QuantBCR-ABL Major p210 Result Detected; QuantBCR-ABL Major p210 Source Whole Blood
--- NOTE | 2023-11-13 13:42 | ONC.NURNOTE ---
Patient called today that he had run out of bosutinib 5 days ago- (11/08) commercial loan underwriter phoned [facility] and the medication was expected to arrive today patient called back and said he had received the medication patient was advised to order his drug 7-10 days before he runs out it took 5 days for medication to be delivered he has 8 more refills on this RX
--- NOTE | 2023-11-15 09:37 | ONC.NURNOTE ---
Addendum entered by Jesika Schmitz RN 11/21/23 10:00: Records received by [facility] [place] and will be contacting Sam this week to schedule his appt Sam/ informed Addendum entered by Jesika Schmitz RN 11/15/23 16:23: records faxed Addendum entered by Jesika Schmitz RN 11/15/23 11:51: Sam needs a referral to be sent to [facility] fax # [phone] Once records received they will triage and call patient for an appt Addendum entered by Jesika Schmitz RN 11/15/23 09:58: correction Bosutinib is through [facility] Original Note: Patient is moving to [place] on 11/29/23 He has name and phone # of local heme/oncologist to call and set up appt Dr Brown/Dr Castro ph [phone] f [phone] Sam and his have been advised to establish care with Onc/Hem now- copy of records given to patient information about transitioning bosutinib enrollment to new provider also provided- forms given to patient will stay enrolled through 06/24/24- but will need new provider to order medication thru [employer] once care is established New address effective 11/29/23 [id number] [address] [place]
== END 2024-02-03 23:59 | disposition home or self-care (01) ==
LOC: CCIC 08:45
PROVIDERS: PCP Physician Assistant Medical; Referring Provider Physician Assistant Medical; Visit Provider Internal Medicine Hematology & Oncology
DX: C92.10 Chronic myeloid leukemia, BCR/ABL-positive, not having achieved remission (principal); D72.824 Basophilia; I10 Essential (primary) hypertension; E78.5 Hyperlipidemia, unspecified; E03.9 Hypothyroidism, unspecified; E11.9 Type 2 diabetes mellitus without complications
CPT/HCPCS: 36415; 80053; 81206; 83615; 84443; 85025; 99213; 99214; G0463